=== PATIENT | male | born 1930 | race Caucasian/White ===

== ENCOUNTER 2018-03-02 19:22 | Inpatient (IN) | payer MEDICARE ==
[2018-03-02 20:05] LABS: #Eosinphils 0.1 thou/uL (0.0-0.7); #Lymphocytes 1.5 thou/uL (1.20-3.40); #Monocytes 0.9 thou/uL (0.11-0.59); #Neutrophils 6.6 thou/uL (1.40-6.50); %Basophils 0.5 % (0.0-1.0); %Lymphocytes 16.7 % (21.0-51.0); %Monocytes 9.3 % (0.0-10.0); %Neutrophils 72.5 % (42.0-75.0); Hemoglobin 10.5 g/dL (14.0-18.0); Mean Corpuscular Hemoglobin 28.6 pg (27.0-31.0); Mean Corpuscular Volume 86.7 fL (78.0-98.0); Mean Platelet Volume 6.8 fL (7.4-10.4); Platelet Count 253 thou/uL (130-400); RBC Distribution Width 13.9 % (11.5-14.5); Red Blood Cell (RBC) Count 3.68 mill/uL (4.70-6.10); White Blood Cell (WBC) Count 9.1 thou/uL (4.8-10.8)
[2018-03-02 20:27] LABS: CKMB 2.6 ng/mL (0-6.6); Troponin I 0.062 ng/mL (< 0.028)
[2018-03-02 20:29] LABS: ALT (SGPT) Less than 7 U/L (8-55); AST (SGOT) 20 U/L (5-34); Albumin 3.7 g/dL (3.4-4.8); Alkaline Phosphatase 71 U/L (40-150); Anion Gap 13 mmol/L (10-20); BUN (Urea Nitrogen) 41 mg/dL (8.4-25.7); Bilirubin, Total 1.3 mg/dL (0.2-1.2); CK (CPK) 78 U/L (30-200); Calc. Creatinine Clearance 0 mL/min (70-130); Calcium 8.8 mg/dL (7.8-10.44); Carbon Dioxide 24 mmol/L (23-31); Chloride 103 mmol/L (98-107); Estimated GFR-MDRD 27; Globulin 2.6 g/dL (2.4-3.5); Glucose 135 mg/dL (83-110); Protein, Total 6.3 g/dL (5.8-8.1); Sodium 136 mmol/L (136-145)
--- NOTE | 2018-03-02 20:44 | RAD ---
PORTABLE UPRIGHT FRONTAL CHEST RADIOGRAPH: DATE: 03-02-18 Comparison: 09-03-16 History: Chest pain. FINDINGS: Heart and mediastinal contours are stable. Midline sternotomy wires are present. There is atheroscler otic calcification in the aortic arch. There is no pneumothorax seen. There is blunting of the costophrenic angle on the left suggesting a small left pleural effusion, new . No lobar consolidation or alveolar edema. There is atherosclerotic calcification of the descending thoracic aorta. IMPRESSION: Findings suggesting a small left pleural effusion. Study otherwise unremarkable. POS: TIM
[2018-03-02] MEDS ORDERED: Furosemide 40 MG/4 ML VIAL ONE (21:28)
[2018-03-02] MEDS ORDERED: Metoprolol Tartrate 5 MG/5 ML VIAL ONE (21:28)
[2018-03-02] MEDS ORDERED: hydrALAZINE 20 MG/ML VIAL ONE (22:19)
[2018-03-02] MEDS ORDERED: Acetaminophen 325 MG TAB PO PRN (22:40)
[2018-03-02] MEDS ORDERED: Ondansetron HCl/PF 4 MG/2 ML Vial IVP PRN (22:40)
[2018-03-02] MEDS ORDERED: traZODone HCl 50 MG TAB PO PRN (22:42)
[2018-03-02] MEDS ORDERED: Dextrose 5% in Water 1,000 ML IV PRN (22:43)
[2018-03-02] MEDS ORDERED: Dextrose 50% Abboject 50 ML SYRINGE SLOW IVP PRN (22:43)
[2018-03-02] MEDS ORDERED: Enoxaparin Sodium 40 MG/0.4 ML SYRINGE SC SCH (22:45)
[2018-03-02 23:20] LABS: Troponin I 0.066 ng/mL (< 0.028)
--- NOTE | 2018-03-03 00:14 | HP ---
CODE STATUS: Patient is FULL CODE as of now, I discussed with , she is willing to discuss with p pino's son and daughter regarding DNR status most likely they will prefer the patient to be DNR. N o repeat seizure at this point. PRIMARY CARE PHYSICIAN: Dr. Morton. CHIEF COMPLAINT: Chest pain. HISTORY OF PRESENT ILLNESS: This is an 88-year-old male patient with past medical history of hypothy roidism, Alzheimer's, CKD, diabetes type 2, hyperlipidemia, hypertension, history of CABG came to the hospital after having chest pain. The pain started when the patient was at rest, the pain got much better after the patient had sublingual nitro. Of note, he has a history of CABG x2 vessel five year s ago. The pain is substernal associated with shortness of breath. REVIEW OF SYSTEMS: Patient has dementia, is difficult to obtain the history, during interview gives repeating the same sentences, information gathered from , this is reported in HPI. No other symp toms like fever or diarrhea, abdominal pain were reported. PAST MEDICAL HISTORY: Patient has hypothyroidism, Alzheimer's, CKD, diabetes type 2, hyperlipidemia, hypertension. PAST SURGICAL HISTORY: Bypass graft surgery in 2012. PSYCHIATRIC HISTORY: Dementia. SOCIAL HISTORY: Lives with at home. FAMILY HISTORY: Reviewed and noncontributory for current presentation. VITAL SIGNS: On presentation blood pressure 192/102 with heart rate 68, respiratory rate 18, tempera ture 98.9. DRUG ALLERGIES: No known drug allergies. REPORTED MEDICATIONS: Enalapril, metformin, trazodone, hydralazine, potassium chloride, levothyroxin e, carvedilol, simvastatin, aspirin, vitamin D3, Sinemet. PHYSICAL EXAMINATION: GENERAL APPEARANCE: The patient is alert, disoriented to underlying dementia, not in any acute distr ess. HEENT: Normocephalic, conjunctivae. Moist oral mucosa, anicteric. NECK: No JVD. RESPIRATORY: Bilateral air entry. No rales, no wheezing. Symmetrical expansion. CARDIOVASCULAR: Normal rate, regular rhythm. Patient is hypertensive. No murmurs, no gallop. Bila teral leg edema. ABDOMEN: Soft, normal bowel sounds. MUSCULOSKELETAL: Baseline range of motion and strength. No tenderness. SKIN: Warm and intact. No pallor, no rash, redness. NEUROLOGIC: Baseline sensory. No evidence of any new focal weakness. Baseline speech. Cranial ner ves seems to be intact. PSYCHIATRIC: Patient is in a good mood. No anxiety, oriented, optimal judgment. LABORATORY DATA: Reviewed. The patient has white count 9.1, hemoglobin 10.5, MCV 86, platelet count 253. Chemistry: Sodium 136, potassium 4.0, chloride 103, carbon dioxide 24, anion gap 13, BUN 41, creatinine 2.2 and the previous admission was 2.0, GFR 27, glucose 135. Total bilirubin 1.3, AST 20, ALT less than 7. CK was negative. Troponin 0.062, the second one 0.066. Beta natriuretic peptide 2105. X-ray findings suggestive of small left pleural effusion, otherwise unremarkable. EKG was rev iewed myself. The patient has normal sinus rhythm with a rate of 68 with NV 188, QRS 76, QT correcte d 474. This was discussed with the performing physician from ER. ASSESSMENT AND PLAN: The patient will be placed in the hospital with following medical problems: 1. Chest pain, rule out acute coronary syndrome. Patient has a history of coronary artery bypass gr aft, it looks like patient has undiagnosed congestive heart failure, patient follow with Dr. Sanchez or consult for further management as inpatient. We will reconcile home medications, continue diuresis. 2. Underlying dementia, patient will need supportive care. We will monitor for delirium as inpeña marcano. 3. Last echo on record is from 2015. At that time, the patient has normal EF. Aortic valve scleros is, mild aortic valve regurgitation, we will repeat the echo in the morning, we will consult Dr. Sanchez and follow recommendations. 4. Normocytic anemia. This seems to be chronic, hemoglobin is 10, we will monitor, no need for any acute intervention at this point. 5. Chronic kidney disease. Creatinine is mildly elevated compared to previous values, patient will need diuresis. We will monitor kidney function. If getting worse, might need Nephro assistance for this patient. We will reconcile home meds, hold CATRACHO inhibitors for now. Might be cardiorenal. 6. Fluid overload secondary to congestive heart failure, treatment as above. 7. Hypothyroidism. Continue hormone replacement. 8. Hyperlipidemia. Continue atorvastatin. 9. Uncontrolled hypertension. Reconcile home medications. 10. Deep venous thrombosis prophylaxis.
[2018-03-03 00:33] VITALS: BMI 30.5
[2018-03-03 02:23] LABS: Troponin I 0.065 ng/mL (< 0.028)
[2018-03-03] MEDS: cloNIDine 0.1 MG TAB PO PRN ×2 (04:02→17:11)
[2018-03-03 05:17] LABS: #Basophils 0.1 thou/uL (0.0-0.2); #Eosinphils 0.1 thou/uL (0.0-0.7); #Lymphocytes 1.7 thou/uL (1.20-3.40); #Monocytes 0.9 thou/uL (0.11-0.59); #Neutrophils 5.9 thou/uL (1.40-6.50); %Basophils 0.8 % (0.0-1.0); %Eosinophils 1.2 % (0.0-10.0); %Lymphocytes 19.1 % (21.0-51.0); %Monocytes 10.5 % (0.0-10.0); %Neutrophils 68.4 % (42.0-75.0); Hemoglobin 10.9 g/dL (14.0-18.0); Mean Corpuscular HGB CONC 31.8 g/dL (32.0-36.0); Mean Corpuscular Hemoglobin 27.4 pg (27.0-31.0); Mean Corpuscular Volume 86.2 fL (78.0-98.0); Mean Platelet Volume 6.8 fL (7.4-10.4); Platelet Count 240 thou/uL (130-400); RBC Distribution Width 14.2 % (11.5-14.5); Red Blood Cell (RBC) Count 3.98 mill/uL (4.70-6.10); White Blood Cell (WBC) Count 8.7 thou/uL (4.8-10.8)
[2018-03-03 05:37] LABS: Anion Gap 14 mmol/L (10-20); BUN (Urea Nitrogen) 40 mg/dL (8.4-25.7); Calc. Creatinine Clearance 28 mL/min (70-130); Calcium 8.8 mg/dL (7.8-10.44); Carbon Dioxide 26 mmol/L (23-31); Chloride 104 mmol/L (98-107); Estimated GFR-MDRD 30; Glucose 123 mg/dL (83-110); Potassium 3.6 mmol/L (3.5-5.1); Sodium 140 mmol/L (136-145)
[2018-03-03] MEDS: Levothyroxine Sodium 100 MCG TAB PO SCH (06:03)
[2018-03-03] MEDS ORDERED: Milk Of Magnesia 30 ML UDCUP PO PRN (07:33)
[2018-03-03] MEDS ORDERED: HYDROcodone/Acetaminophen 5/325 mg Tablet PO PRN (07:33)
[2018-03-03] MEDS ORDERED: Nitroglycerin 0.4 MG TAB (25 Tab Bottle) SL PRN (07:33)
[2018-03-03] MEDS ORDERED: Ondansetron ODT 4 MG TAB PO PRN (07:33)
[2018-03-03] MEDS ORDERED: Mag-Al 1200 mg/1200 mg/30 ML UDCUP PO PRN (07:33)
[2018-03-03] MEDS ORDERED: Chloraseptic Spray 180 ml Bottle PO PRN (07:33)
[2018-03-03] MEDS ORDERED: Senokot 8.6 MG TAB PO PRN (07:33)
[2018-03-03] MEDS ORDERED: Artificial Tears 18 DROP/0.9 ML EA EYE PRN (07:33)
[2018-03-03] MEDS ORDERED: Eucerin (Mineral Oil/Petrolatum,White) 30 gm Jar TOP PRN (07:33)
[2018-03-03] MEDS ORDERED: Diabetic Tussin 200 MG/10 ML UDCUP PO PRN (07:33)
[2018-03-03] MEDS ORDERED: Sodium Chloride 0.65% Nasal 44 ML BOT EA NARE PRN (07:33)
[2018-03-03] MEDS ORDERED: Loratadine 10 MG TAB PO PRN (07:33)
[2018-03-03] MEDS ORDERED: hydrALAZINE 20 MG/ML VIAL SLOW IVP PRN (07:33)
[2018-03-03] MEDS: Aspirin 81 mg Enteric Coated Tablet PO SCH (08:58)
[2018-03-03] MEDS: Potassium Chloride 10 MEQ TAB PO SCH (08:58)
[2018-03-03] MEDS ORDERED: Amlodipine 5 MG TAB PO SCH (09:00)
[2018-03-03] MEDS ORDERED: Levothyroxine Sodium 100 MCG TAB PO SCH (09:00)
[2018-03-03] MEDS ORDERED: hydrALAZINE 25 MG TAB PO SCH (09:00)
[2018-03-03] MEDS: Carvedilol 6.25 MG TAB PO SCH ×2 (09:04→21:53)
[2018-03-03] MEDS: Furosemide 40 MG/4 ML VIAL SLOW IVP SCH (09:04)
[2018-03-03] MEDS: hydrALAZINE 25 MG TAB PO SCH ×2 (09:04→21:56)
--- NOTE | 2018-03-03 10:55 | PDOC.PN ---
- Subjective Encounter Start Date: 03/03/18 Encounter Start Time: 08:00 -: old records requested/rev Patient seen and examined for chf. No new complaints. No overnight events pt's present bedside, i spoke with her and history obtained - Objective Resuscitation Status: Resuscitation Status FULL:Full Resuscitation MAR Reviewed: Yes Vital Signs & Weight: Vital Signs (12 hours) Temp Pulse Resp BP BP BP Pulse Ox 03/03/18 04:02 180/88 H 03/03/18 03:21 98.1 F 75 15 180/88 H 92 L 03/02/18 23:20 98.3 F 75 18 167/82 H 97 Weight Weight 177 lb 12.8 oz I&O: 03/02/18 03/03/18 03/04/18 06:59 06:59 06:59 Intake Total 240 Output Total 1300 Balance -1060 Result Diagrams: 03/03/18 04:28 03/03/18 04:28 Additional Labs: Accuchecks 03/03/18 05:49 POC Glucose 118 H Radiology Reviewed by me: Yes (chest xray) EKG Reviewed by me: Yes (nsr) Phys Exam - Physical Examination Constitutional: NAD HEENT: PERRLA, moist MMs, sclera anicteric Neck: no JVD, supple Respiratory: no wheezing, no rhonchi reduced air entry at left side Cardiovascular: RRR, no significant murmur, no rub Gastrointestinal: soft, non-tender, no distention, positive bowel sounds Musculoskeletal: pulses present, edema present Neurological: non-focal, normal sensation Lymphatic: no nodes Psychiatric: normal affect Skin: no rash, normal turgor Dx/Plan (1) Acute on chronic diastolic ACC/AHA stage C congestive heart failure Code(s): I50.33 - ACUTE ON CHRONIC DIASTOLIC (CONGESTIVE) HEART FAILURE Status : Acute (2) Acute worsening of stage 3 chronic kidney disease Code(s): N18.3 - CHRONIC KIDNEY DISEASE, STAGE 3 (MODERATE) Status: Acute (3) Chest pain Code(s): R07.9 - CHEST PAIN, UNSPECIFIED Status: Acute (4) Demand ischemia Code(s): I24.8 - OTHER FORMS OF ACUTE ISCHEMIC HEART DISEASE Status: Acute (5) CAD (coronary artery disease) Code(s): I25.10 - ATHSCL HEART DISEASE OF [place] CORONARY ARTERY W/O ANG PCTRS Status: Chronic (6) Dementia Code(s): F03.90 - UNSPECIFIED DEMENTIA WITHOUT BEHAVIORAL DISTURBANCE Status: Chronic (7) Diabetes type 2, controlled Code(s): E11.9 - TYPE 2 DIABETES MELLITUS WITHOUT COMPLICATIONS Status: Chronic (8) Dyslipidemia Code(s): E78.5 - HYPERLIPIDEMIA, UNSPECIFIED Status: Chronic (9) Hypertension Code(s): I10 - ESSENTIAL (PRIMARY) HYPERTENSION Status: Chronic Comment: (10) Hypothyroidism Code(s): E03.9 - HYPOTHYROIDISM, UNSPECIFIED Status: Chronic (11) Obesity (BMI 30.0-34.9) Code(s): E66.9 - OBESITY, UNSPECIFIED Status: Chronic (12) Parkinson disease Code(s): G20 - PARKINSON'S DISEASE Status: Chronic - Plan cont current plan of care, plan discussed w/ family, PT/OT * cardiology consulted * echo will be done today * continue lasix * start selected home medication * add nitro patch * monitor renal function * discussed plan with * medication reviewed as below * symptomatic treatment * based on his renal function he is not a good candidate for cardiac cath at this point. Review of Systems - Review of Systems Other: not reliable with pt due to his dementia - Medications/Allergies Allergies/Adverse Reactions: Allergies Allergy/AdvReac Type Severity Reaction Status Date / Time donepezil HCl [From Aricept] Allergy Mild Verified 03/15/16 13:25 Medications: Current Medications Acetaminophen (Tylenol) 650 mg PO Q4H PRN PRN Reason: Headache/Fever or Pain Hydrocodone Bitart/Acetaminophen (Purling 5/325) 1 tab PO Q4H PRN PRN Reason: Moderate Pain (4-6) Al Hydroxide/Mg Hydroxide (Maalox) 15 ml PO Q4H PRN PRN Reason: Heartburn or Indigestion Artificial Tears (Tears Naturale) 0 drop EA EYE PRN PRN PRN Reason: Dry Eyes Aspirin (Ecotrin) 81 mg PO DAILY [facility] Last Admin: 03/03/18 08:58 Dose: 81 mg Atorvastatin Calcium (Lipitor) 10 mg PO HS [facility] Carvedilol (Coreg) 6.25 mg PO BID [facility] Last Admin: 03/03/18 09:04 Dose: 6.25 mg Clonidine (Catapres) 0.1 mg PO Q4H PRN PRN Reason: BP>180/100 Last Admin: 03/03/18 04:02 Dose: 0.1 mg Dextrose/Water (Dextrose 50%) 25 gm SLOW IVP PRN PRN PRN Reason: Hypoglycemia Furosemide (Lasix) 40 mg SLOW IVP DAILY [facility] Last Admin: 03/03/18 09:04 Dose: 40 mg Glucagon (Glucagon) 1 mg IM PRN PRN PRN Reason: Hypoglycemia Guaifenesin (Robitussin Sf) 200 mg PO Q4H PRN PRN Reason: Cough Hydralazine HCl (Apresoline) 75 mg PO BID [facility] Last Admin: 03/03/18 09:04 Dose: 75 mg Hydralazine HCl (Apresoline) 10 mg SLOW IVP Q4H PRN PRN Reason: Systolic BP > 180 Dextrose/Water (D5w) 1,000 mls @ 0 mls/hr IV .Q0M PRN; As Directed PRN Reason: Hypoglycemia Insulin Human Regular (Humulin R) 0 units SC .MILD SLIDING SCALE PRN PRN Reason: Mild Correctional Scale Levothyroxine Sodium (Synthroid) 100 mcg PO 0600 [facility] Last Admin: 03/03/18 06:03 Dose: 100 mcg Loratadine (Claritin) 10 mg PO DAILYPRN PRN PRN Reason: Sinus Symptoms Magnesium Hydroxide (Milk Of Magnesium) 30 ml PO DAILYPRN PRN PRN Reason: Constipation Mineral Oil/White Petrolatum (Eucerin Cream) 0 gm TOP BIDPRN PRN PRN Reason: Dry Skin Nitroglycerin (Nitrostat) 0.4 mg SL Q5MIN PRN PRN Reason: Chest Pain Nitroglycerin (Nitro-Bid 2% Ointment) 0.5 inch TOP Q8HR [facility] Ondansetron HCl (Zofran) 4 mg IVP Q6H PRN PRN Reason: Nausea/Vomiting Ondansetron HCl (Zofran Odt) 4 mg PO Q6H PRN PRN Reason: Nausea/Vomiting (Carbidopa/Levodopa/Entacapone [ Carbidopa-Levodopa 125 Mg-Enta] 0 each PO Q6HR [facility] Phenol (Chloraseptic [place] 180 Ml Bot) 0 ml PO PRN PRN PRN Reason: Sore Throat Potassium Chloride (Klor-Con 10) 10 meq PO QAM[facility] Last Admin: 03/03/18 08:58 Dose: 10 meq Senna (Senokot) 2 tab PO HSPRN PRN PRN Reason: Constipation Sodium Chloride (Crook Nasal [place] 0.65%) 0 ml EA NARE QIDPRN PRN PRN Reason: Nasal Congestion Trazodone HCl (Desyrel) 25 mg PO HSPRN PRN PRN Reason: Insomnia
--- NOTE | 2018-03-03 12:44 | CON ---
DATE OF CONSULTATION: 03/03/2018 DATE OF ADMISSION: 03/02/2018 INDICATION FOR CONSULTATION: An 88-year-old gentleman with a history of known coronary artery diseas e, bypass surgery who has developed new onset congestive heart failure. HISTORY OF PRESENT ILLNESS: This is a very pleasant gentleman I have been following him for many yea rs, he is now 88 years old. He has been doing relatively well, but does have dementia. Otherwise, mt holder did undergo bypass surgery, I believe in 2012. He had a ARSHAD to the left anterior descending arter y, saphenous vein graft to the right coronary artery. He has been followed on a routine basis and evans s been doing very well. The last couple of months his said he has noticed increased lower extre mity edema and has also had occasional diarrhea. He has been also problems with hypertension which h as been poorly controlled despite multiple medications. He presented to the hospital yesterday after he complained of chest pain. He originally was having some diarrhea and complained of abdominal conner n, then told his he was not feeling well all day long and then complained of some chest discomfo rt and was brought to the emergency room. He also been complaining of some shortness of breath. EKG was unremarkable. Cardiac enzymes were indeterminate. His a troponin after the second set was 0.06 6. An echocardiogram is still pending. His last echocardiogram, I believe was in 2013, which showed mild mitral valve regurgitation, mild to moderate aortic and tricuspid valve regurgitation with ejec tion fraction was normal at 55-60%. He has had no previous history of myocardial infarction or conge stive heart failure symptoms in the past. Today, he is relatively alert. He was able to recognize m e. His says he has good days and bad days, but was unable to answer some questions for me. He did know where he was and did know who he was and is denying any chest pain or shortness of breath at this time. PAST MEDICAL HISTORY: Significant for the coronary artery disease, bypass surgery. He has hyperlipi demia, hypertension, diabetes type 2, chronic kidney disease, dementia. He has had bypass surgery as noted above. REVIEW OF SYSTEMS: Twelve point review of systems is unremarkable except for the history of intermit tent diarrhea, shortness of breath, lower extremity edema, occasional chest discomfort as noted, but this is a new finding. Previously he has not had any complaints of chest discomfort. Otherwise, 12 point review of systems unremarkable. MEDICATIONS: His medications prior to admission include aspirin, enalapril, levothyroxine, hydralazi ne, metformin, Sinemet, Norvasc, simvastatin, trazodone, potassium, vitamin D3 and Coreg. These medi cations have slightly been adjusted with his recent blood pressure elevations. Here in the hospital, he has also been continued on these medications except he is at increased dose of the Coreg. He has been started on Lasix. He is still taking atorvastatin 10 mg, he is on Coreg 6.25 mg b.i.d. He has also been placed on a Lovenox. I believe he was given a dose and then this was discontinued. FAMILY HISTORY: Noncontributory. SOCIAL HISTORY: There is no history of alcohol or tobacco abuse at this time. PHYSICAL EXAMINATION: GENERAL: Reveals an elderly gentleman who is in no acute distress at this time. VITAL SIGNS: Blood pressure is elevated at 180/88. He is afebrile, respiratory rate is 16, heart ra te is 75 and shows sinus rhythm. O2 saturation is 95%. HEENT: Shows the head to be normocephalic and atraumatic. Carotid pulses are present. I did not he ar any significant bruits at this time. CHEST: His chest is actually clear to auscultation. I did not hear any rales, rhonchi or wheezing. CARDIOVASCULAR: Exam reveals a regular rate and rhythm with normal S1, S2. There is no significant S3, S4, no significant murmurs, heaves, thrills, bruits or rubs noted. He does have very soft diasto lic murmur over the aortic area compatible with his known history of aortic valve regurgitation. ABDOMEN: Soft. He does have some mild tympany, but no palpable masses, no tenderness. EXTREMITIES: Showed 1-2+ lower extremity edema. Pedal pulses are present. NEUROLOGIC: The patient obviously has dementia, but there were no gross focal motor deficits that we re appreciated. SKIN: Warm and dry at this time. LABORATORY: Laboratory data is pertinent for a BUN of 40 with a creatinine of 2.09, blood sugar was 123, potassium 3.6, hemoglobin is 10.9, WBC of 8.7. EKG shows a sinus rhythm with no acute changes. Chest x-ray shows a small left pleural effusion. IMPRESSION: 1. New onset congestive heart failure which may be diastolic in nature. The echocardiogram is still pending. We will review that for evaluation of left ventricular systolic function as well as diasto lic function and valvular status. 2. Hypertension. This has been a relatively new finding in this gentleman. Previously he did not h ave any significant hypertension. The last time he was seen in the office was October of this year and blood pressure was 134/61 with a heart rate of 54. 3. History of coronary artery disease. He is status post bypass surgery. This appears to be stable at this time. The cardiac enzymes are slightly elevated; however, most likely this is due to demand ischemia associated with the hypertension and congestive heart failure. 4. History of chronic kidney disease, it does present a problem for this gentleman trying to diurese him with a creatinine of 2.09. He may need to have a Nephrology consultation. We need to evaluate his medications. He is not on CATRACHO inhibitor except for that he has been on CATRACHO inhibitor, he had be en on enalapril in the past. 5. History of diabetes. This will be dealt with by the primary care service. 6. Alzheimer disease. This certainly has not been an issue for this gentlemen over the last several years. He has continued to decline. At times he does not recognize members of his family, but he d oes recognize his and today he seems to be a good day for him as he knows relatively who I am an d where he is. 7. Hypercholesterolemia. He will continue to take his medications. 8. Also, please note that he is still taking atorvastatin 10. He is on Coreg 6.25 mg b.i.d. He has also been placed on Lovenox. I believe he was given a dose and then this was discontinued. He is g etting Lasix 40 mg IV. He also has been placed on hydralazine for the blood pressure. We will diamante nue to monitor these medications. We may need to add clonidine in order to lower the blood pressure. This may be his hypertension which has been difficult to control since January according to the family , may be the etiology behind the acute congestive heart failure type symptoms and the edema. 9. Lower extremity edema. We will try to elevate the legs, add diuretics as tolerated and see if he improves and hopefully the BNP will also decrease, his BNP was over 1999. 10. Anemia. This is relatively stable, but hemoglobin was 10.9, which may be dilutional to a certai n degree since he is volume overloaded. 11. Small left pleural effusion. Hopefully, this will resolve with diuresis. Further recommendations will depend on the results of the echocardiogram which will be reviewed today .
[2018-03-03] MEDS: Nitroglycerin 2% Ointment 1 INCH/1 GM Packet TOP SCH ×2 (15:38→21:59)
[2018-03-03] MEDS: Carbidopa/Levodopa 25-100 mg Tablet PO SCH ×2 (17:11→21:53)
[2018-03-03] MEDS ORDERED: Non-Formulary Item 1 EACH (Simvastatin [Simvastatin] 10 MG) PO SCH (21:00)
[2018-03-03] MEDS: Atorvastatin Calcium 10 MG TAB PO SCH (21:53)
[2018-03-04] MEDS: cloNIDine 0.1 MG TAB PO PRN (04:02)
[2018-03-04] MEDS: Levothyroxine Sodium 100 MCG TAB PO SCH (05:12)
[2018-03-04] MEDS: Nitroglycerin 2% Ointment 1 INCH/1 GM Packet TOP SCH ×3 (05:13→22:34)
[2018-03-04] MEDS: Aspirin 81 mg Enteric Coated Tablet PO SCH (08:06)
[2018-03-04] MEDS: Carvedilol 6.25 MG TAB PO SCH ×2 (08:06→19:46)
[2018-03-04] MEDS: Carbidopa/Levodopa 25-100 mg Tablet PO SCH ×6 (08:07→19:47)
[2018-03-04] MEDS: Amlodipine 5 MG TAB PO SCH (08:07)
[2018-03-04] MEDS: hydrALAZINE 25 MG TAB PO SCH ×3 (08:07→19:47)
[2018-03-04] MEDS: Potassium Chloride 10 MEQ TAB PO SCH (08:08)
[2018-03-04] MEDS: Furosemide 40 MG/4 ML VIAL SLOW IVP SCH (08:08)
[2018-03-04] MEDS: NIFEdipine XL 30 MG TAB PO SCH (08:13)
--- NOTE | 2018-03-04 11:06 | PDOC.PN ---
- Subjective Encounter Start Date: 03/04/18 Encounter Start Time: 08:00 -: old records requested/rev Patient seen and examined. No new complaints. No overnight events edema is reducing - Objective Resuscitation Status: Resuscitation Status FULL:Full Resuscitation MAR Reviewed: Yes Vital Signs & Weight: Vital Signs (12 hours) Temp Pulse Resp BP BP Pulse Ox 03/04/18 08:00 98.9 F 75 16 177/95 H 94 L 03/04/18 05:15 63 169/86 H 03/04/18 04:02 184/89 H 03/04/18 03:57 98.5 F 68 18 184/89 H 96 03/04/18 00:00 98.6 F 68 18 172/86 H 96 Weight Weight 166 lb 12.8 oz I&O: 03/03/18 03/04/18 03/05/18 06:59 06:59 06:59 Intake Total 240 580 100 Output Total 1300 Balance -1060 580 100 Result Diagrams: 03/03/18 04:28 03/03/18 04:28 Additional Labs: Accuchecks 03/04/18 03/03/18 03/03/18 06:21 21:00 16:55 POC Glucose 141 H 153 H 150 H 03/03/18 11:13 POC Glucose 157 H Radiology Reviewed by me: Yes (echo) EKG Reviewed by me: Yes (nsr) Phys Exam - Physical Examination Constitutional: NAD HEENT: PERRLA, moist MMs, sclera anicteric Neck: no JVD, supple Respiratory: no wheezing, no rales, no rhonchi Cardiovascular: RRR, no rub SM+ parasternal Gastrointestinal: soft, non-tender, no distention, positive bowel sounds Musculoskeletal: pulses present, edema present Neurological: non-focal, normal sensation Lymphatic: no nodes Psychiatric: normal affect Skin: no rash, normal turgor Dx/Plan (1) Acute on chronic diastolic ACC/AHA stage C congestive heart failure Code(s): I50.33 - ACUTE ON CHRONIC DIASTOLIC (CONGESTIVE) HEART FAILURE Status : Acute (2) Acute worsening of stage 3 chronic kidney disease Code(s): N18.3 - CHRONIC KIDNEY DISEASE, STAGE 3 (MODERATE) Status: Acute (3) Chest pain Code(s): R07.9 - CHEST PAIN, UNSPECIFIED Status: Acute (4) Demand ischemia Code(s): I24.8 - OTHER FORMS OF ACUTE ISCHEMIC HEART DISEASE Status: Acute (5) CAD (coronary artery disease) Code(s): I25.10 - ATHSCL HEART DISEASE OF [place] CORONARY ARTERY W/O ANG PCTRS Status: Chronic (6) Dementia Code(s): F03.90 - UNSPECIFIED DEMENTIA WITHOUT BEHAVIORAL DISTURBANCE Status: Chronic (7) Diabetes type 2, controlled Code(s): E11.9 - TYPE 2 DIABETES MELLITUS WITHOUT COMPLICATIONS Status: Chronic (8) Dyslipidemia Code(s): E78.5 - HYPERLIPIDEMIA, UNSPECIFIED Status: Chronic (9) Hypertension Code(s): I10 - ESSENTIAL (PRIMARY) HYPERTENSION Status: Chronic Comment: (10) Hypothyroidism Code(s): E03.9 - HYPOTHYROIDISM, UNSPECIFIED Status: Chronic (11) Obesity (BMI 30.0-34.9) Code(s): E66.9 - OBESITY, UNSPECIFIED Status: Chronic (12) Parkinson disease Code(s): G20 - PARKINSON'S DISEASE Status: Chronic (13) Moderate mitral regurgitation Code(s): I34.0 - NONRHEUMATIC MITRAL (VALVE) INSUFFICIENCY Status: Chronic (14) Restrictive cardiomyopathy Code(s): I42.5 - OTHER RESTRICTIVE CARDIOMYOPATHY Status: Chronic (15) Severe tricuspid regurgitation Code(s): I07.1 - RHEUMATIC TRICUSPID INSUFFICIENCY Status: Chronic - Plan cont current plan of care, plan discussed w/ family, PT/OT, social media content specialist * continue lasix * creatinine is improving * will need SNU placement * start PT/OT * medication reviewed as below * symptomatic treatment * discussed with daughter. Review of Systems - Review of Systems Other: not reliable due to cognitive status - Medications/Allergies Allergies/Adverse Reactions: Allergies Allergy/AdvReac Type Severity Reaction Status Date / Time donepezil HCl [From Aricept] Allergy Mild Verified 03/15/16 13:25 Medications: Current Medications Acetaminophen (Tylenol) 650 mg PO Q4H PRN PRN Reason: Headache/Fever or Pain Hydrocodone Bitart/Acetaminophen ([place] 5/325) 1 tab PO Q4H PRN PRN Reason: Moderate Pain (4-6) Al Hydroxide/Mg Hydroxide (Maalox) 15 ml PO Q4H PRN PRN Reason: Heartburn or Indigestion Amlodipine Besylate (Norvasc) 5 mg PO DAILY [facility] Last Admin: 03/04/18 08:07 Dose: 5 mg Artificial Tears (Tears Naturale) 0 drop EA EYE PRN PRN PRN Reason: Dry Eyes Aspirin (Ecotrin) 81 mg PO DAILY [facility] Last Admin: 03/04/18 08:06 Dose: 81 mg Atorvastatin Calcium (Lipitor) 10 mg PO HS [facility] Last Admin: 03/03/18 21:53 Dose: 10 mg Carbidopa/Levodopa (Sinemet 25-100) 1 tab PO QID [facility] Last Admin: 03/04/18 08:07 Dose: 1 tab Carbidopa/Levodopa (Sinemet 25-100) 1 tab PO QID [facility] Last Admin: 03/04/18 08:07 Dose: Not Given Carvedilol (Coreg) 6.25 mg PO BID [facility] Last Admin: 03/04/18 08:06 Dose: 6.25 mg Clonidine (Catapres) 0.1 mg PO Q4H PRN PRN Reason: BP>180/100 Last Admin: 03/04/18 04:02 Dose: 0.1 mg Dextrose/Water (Dextrose 50%) 25 gm SLOW IVP PRN PRN PRN Reason: Hypoglycemia Furosemide (Lasix) 40 mg SLOW IVP DAILY [facility] Last Admin: 03/04/18 08:08 Dose: 40 mg Glucagon (Glucagon) 1 mg IM PRN PRN PRN Reason: Hypoglycemia Guaifenesin (Robitussin Sf) 200 mg PO Q4H PRN PRN Reason: Cough Hydralazine HCl (Apresoline) 10 mg SLOW IVP Q4H PRN PRN Reason: Systolic BP > 180 Last Admin: 03/03/18 18:18 Dose: 10 mg Hydralazine HCl (Apresoline) 75 mg PO TID [facility] Last Admin: 03/04/18 08:07 Dose: 75 mg Dextrose/Water (D5w) 1,000 mls @ 0 mls/hr IV .Q0M PRN; As Directed PRN Reason: Hypoglycemia Insulin Human Regular (Humulin R) 0 units SC .MILD SLIDING SCALE PRN PRN Reason: Mild Correctional Scale Levothyroxine Sodium (Synthroid) 100 mcg PO 0600 [facility] Last Admin: 03/04/18 05:12 Dose: 100 mcg Loratadine (Claritin) 10 mg PO DAILYPRN PRN PRN Reason: Sinus Symptoms Magnesium Hydroxide (Milk Of Magnesium) 30 ml PO DAILYPRN PRN PRN Reason: Constipation Mineral Oil/White Petrolatum (Eucerin Cream) 0 gm TOP BIDPRN PRN PRN Reason: Dry Skin Nifedipine (Procardia Xl) 30 mg PO DAILY [facility] Last Admin: 03/04/18 08:13 Dose: 30 mg Nitroglycerin (Nitrostat) 0.4 mg SL Q5MIN PRN PRN Reason: Chest Pain Nitroglycerin (Nitro-Bid 2% Ointment) 0.5 inch TOP Q8HR [facility] Last Admin: 03/04/18 05:13 Dose: 0.5 inch Ondansetron HCl (Zofran) 4 mg IVP Q6H PRN PRN Reason: Nausea/Vomiting Ondansetron HCl (Zofran Odt) 4 mg PO Q6H PRN PRN Reason: Nausea/Vomiting Phenol (Chloraseptic [place] 180 Ml Bot) 0 ml PO PRN PRN PRN Reason: Sore Throat Potassium Chloride (Klor-Con 10) 10 meq PO QAM-WM [facility] Last Admin: 03/04/18 08:08 Dose: 10 meq Senna (Senokot) 2 tab PO HSPRN PRN PRN Reason: Constipation Sodium Chloride ([place] Nasal [place] 0.65%) 0 ml EA NARE QIDPRN PRN PRN Reason: Nasal Congestion Sodium Chloride (Flush - Normal Saline) 10 ml IVF Q12HR [facility] Last Admin: 03/04/18 08:08 Dose: 10 ml Sodium Chloride (Flush - Normal Saline) 10 ml IVF PRN PRN PRN Reason: Saline Flush Trazodone HCl (Desyrel) 25 mg PO HSPRN PRN PRN Reason: Insomnia
--- NOTE | 2018-03-04 12:40 | PDOC.CTH ---
<Betty Brady - Last Filed: 03/04/18 12:34> Cardiology Progress Note - Subjective The pt seen and examined. No overnight events. No cardiac complaints. Per daughter, the pt had CP at CABG surgical site until last night. Today, the pt denied CP or discomfort in his chest. - Objective Vital Signs Temp Pulse Resp BP BP Pulse Ox 03/04/18 12:00 98.4 F 62 18 176/76 H 94 L 03/04/18 08:00 98.9 F 75 16 177/95 H 94 L 03/04/18 05:15 63 169/86 H 03/04/18 04:02 184/89 H 03/04/18 03:57 98.5 F 68 18 184/89 H 96 Weight 166 lb 12.8 oz 03/03/18 03/04/18 03/05/18 06:59 06:59 06:59 Intake Total 240 580 100 Output Total 1300 Balance -1060 580 100 - Physical Examination General/Neuro: other: (confused) Lungs: CTA Heart: RRR Abdomen: soft Extremities: other: (2+ pitting edema to around ankles.) - Telemetry Telemetry Rhythm: SR 60s - Labs Result Diagrams: 03/03/18 04:28 03/03/18 04:28 Troponin/CKMB CK-MB (CK-2) 2.6 ng/mL (0-6.6) 03/02/18 19:56 Troponin I 0.065 ng/mL (< 0.028) H 03/03/18 01:50 - Assessment/Plan 1. Acute on chronic diastolic HF - Stable with Lasix, bblocker. Not on CATRACHO due to hx of CKD. cont. to monitor 2. 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 to monitor on tele 3. HTN - Start Clonidine 0.1mg PO BID. Cont. monitor 4. CKD stage 3 - improving 5. Hyperlipidemia - on Statin 6. DM type 2 - managed by PCP 7. Alzheimer disease - stable; family at bedside 8. Lt small pleural effusion - On diuretic. 9. hypothyroidism - MAR reviewed * Echo on 03/03/18 showed EF 45-50%, dilated IVC, posterior hypokinesis, mild dilated bilat. atriums, mild-mod MR and AR, severe TR Review of Systems - Review of Systems Constitutional: reports: no symptoms reported EENTM: reports: no symptoms reported Respiratory: reports: no symptoms reported Cardiac (ROS): reports: no symptoms reported ABD/GI: reports: no symptoms reported : reports: no symptoms reported Musculoskeletal: reports: no symptoms reported <Milton Sanchez - Last Filed: 03/04/18 17:46> Cardiology Progress Note - Objective Vital Signs Temp Pulse Pulse Pulse Resp BP BP 03/04/18 16:00 97.7 F 59 L 18 03/04/18 14:36 61 64 127/57 L 144/71 H 03/04/18 12:00 98.4 F 62 18 03/04/18 08:00 98.9 F 75 16 BP Pulse Ox 03/04/18 16:00 142/69 H 92 L 03/04/18 14:36 03/04/18 12:00 176/76 H 94 L 03/04/18 08:00 177/95 H 94 L Weight 166 lb 12.8 oz 03/03/18 03/04/18 03/05/18 06:59 06:59 06:59 Intake Total 240 580 250 Output Total 1300 Balance -1060 580 250 - Labs Result Diagrams: 03/03/18 04:28 03/03/18 04:28 Troponin/CKMB CK-MB (CK-2) 2.6 ng/mL (0-6.6) 03/02/18 19:56 Troponin I 0.065 ng/mL (< 0.028) H 03/03/18 01:50 - Assessment/Plan Pt. seen and eval. by me. I agree with the A/P by the CELL ATTENDANT. The BP is improved. No chest pain. Continue medical management.
[2018-03-04] MEDS ORDERED: cloNIDine 0.1 MG TAB PO SCH ×2 (12:45→13:00)
[2018-03-04] MEDS: cloNIDine 0.1 MG TAB PO SCH (19:45)
[2018-03-04] MEDS: Atorvastatin Calcium 10 MG TAB PO SCH (19:46)
[2018-03-05] MEDS: Nitroglycerin 2% Ointment 1 INCH/1 GM Packet TOP SCH (05:40)
[2018-03-05] MEDS: Levothyroxine Sodium 100 MCG TAB PO SCH (05:40)
[2018-03-05] MEDS: hydrALAZINE 25 MG TAB PO SCH ×3 (08:29→21:02)
[2018-03-05] MEDS: Carbidopa/Levodopa 25-100 mg Tablet PO SCH ×4 (08:29→21:03)
[2018-03-05] MEDS: Potassium Chloride 10 MEQ TAB PO SCH (08:29)
[2018-03-05] MEDS: Aspirin 81 mg Enteric Coated Tablet PO SCH (08:30)
[2018-03-05] MEDS: cloNIDine 0.1 MG TAB PO SCH ×2 (08:30→21:02)
[2018-03-05] MEDS: Carvedilol 6.25 MG TAB PO SCH (08:30)
[2018-03-05] MEDS: Furosemide 40 MG/4 ML VIAL SLOW IVP SCH (08:31)
[2018-03-05] MEDS: NIFEdipine XL 30 MG TAB PO SCH (08:31)
[2018-03-05] MEDS: Amlodipine 5 MG TAB PO SCH (08:31)
--- NOTE | 2018-03-05 11:57 | PDOC.PN ---
- Subjective Encounter Start Date: 03/05/18 Encounter Start Time: 08:50 Patient seen and examined. No new complaints. No overnight events - Objective Resuscitation Status: Resuscitation Status FULL:Full Resuscitation MAR Reviewed: Yes Vital Signs & Weight: Vital Signs (12 hours) Temp Pulse Resp BP Pulse Ox 03/05/18 08:29 61 03/05/18 08:00 97.7 F 61 16 131/62 93 L 03/05/18 04:00 98.0 F 61 18 148/70 H 94 L Weight Weight 166 lb 1.6 oz I&O: 03/04/18 03/05/18 03/06/18 06:59 06:59 06:59 Intake Total 580 890 150 Output Total 625 Balance 580 265 150 Result Diagrams: 03/03/18 04:28 03/03/18 04:28 Additional Labs: Accuchecks 03/05/18 03/04/18 03/04/18 05:55 20:52 16:55 POC Glucose 121 H 297 H 145 H EKG Reviewed by me: Yes (nsr) Phys Exam - Physical Examination Constitutional: NAD HEENT: PERRLA, moist MMs, sclera anicteric Neck: no JVD, supple Respiratory: no wheezing, no rales, no rhonchi Cardiovascular: RRR, no rub SM+ Gastrointestinal: soft, non-tender, no distention, positive bowel sounds Musculoskeletal: no edema, pulses present Neurological: non-focal, normal sensation Lymphatic: no nodes Psychiatric: normal affect, A&O x 3 Skin: no rash, normal turgor Dx/Plan (1) Acute on chronic diastolic ACC/AHA stage C congestive heart failure Code(s): I50.33 - ACUTE ON CHRONIC DIASTOLIC (CONGESTIVE) HEART FAILURE Status : Acute (2) Acute worsening of stage 3 chronic kidney disease Code(s): N18.3 - CHRONIC KIDNEY DISEASE, STAGE 3 (MODERATE) Status: Acute (3) Chest pain Code(s): R07.9 - CHEST PAIN, UNSPECIFIED Status: Acute (4) Demand ischemia Code(s): I24.8 - OTHER FORMS OF ACUTE ISCHEMIC HEART DISEASE Status: Acute (5) CAD (coronary artery disease) Code(s): I25.10 - ATHSCL HEART DISEASE OF [place] CORONARY ARTERY W/O ANG PCTRS Status: Chronic (6) Dementia Code(s): F03.90 - UNSPECIFIED DEMENTIA WITHOUT BEHAVIORAL DISTURBANCE Status: Chronic (7) Diabetes type 2, controlled Code(s): E11.9 - TYPE 2 DIABETES MELLITUS WITHOUT COMPLICATIONS Status: Chronic (8) Dyslipidemia Code(s): E78.5 - HYPERLIPIDEMIA, UNSPECIFIED Status: Chronic (9) Hypertension Code(s): I10 - ESSENTIAL (PRIMARY) HYPERTENSION Status: Chronic Comment: (10) Hypothyroidism Code(s): E03.9 - HYPOTHYROIDISM, UNSPECIFIED Status: Chronic (11) Obesity (BMI 30.0-34.9) Code(s): E66.9 - OBESITY, UNSPECIFIED Status: Chronic (12) Parkinson disease Code(s): G20 - PARKINSON'S DISEASE Status: Chronic (13) Moderate mitral regurgitation Code(s): I34.0 - NONRHEUMATIC MITRAL (VALVE) INSUFFICIENCY Status: Chronic (14) Restrictive cardiomyopathy Code(s): I42.5 - OTHER RESTRICTIVE CARDIOMYOPATHY Status: Chronic (15) Severe tricuspid regurgitation Code(s): I07.1 - RHEUMATIC TRICUSPID INSUFFICIENCY Status: Chronic - Plan cont current plan of care, plan discussed w/ family, PT/OT, social media analyst * continue lasix * will need swing bed * medication reviewed as below * symptomatic treatment * telephonic nurse case manager to work on that * expecting discharge tomorrow * discussed with . Review of Systems - Review of Systems Other: not reliable with pt due to his cognitive status - Medications/Allergies Allergies/Adverse Reactions: Allergies Allergy/AdvReac Type Severity Reaction Status Date / Time donepezil HCl [From Aricept] Allergy Mild Verified 03/15/16 13:25 Medications: Current Medications Acetaminophen (Tylenol) 650 mg PO Q4H PRN PRN Reason: Headache/Fever or Pain Hydrocodone Bitart/Acetaminophen ([place] 5/325) 1 tab PO Q4H PRN PRN Reason: Moderate Pain (4-6) Al Hydroxide/Mg Hydroxide (Maalox) 15 ml PO Q4H PRN PRN Reason: Heartburn or Indigestion Amlodipine Besylate (Norvasc) 5 mg PO DAILY [facility] Last Admin: 03/05/18 08:31 Dose: Not Given Artificial Tears (Tears Naturale) 0 drop EA EYE PRN PRN PRN Reason: Dry Eyes Aspirin (Ecotrin) 81 mg PO DAILY [facility] Last Admin: 03/05/18 08:30 Dose: 81 mg Atorvastatin Calcium (Lipitor) 10 mg PO HS [facility] Last Admin: 03/04/18 19:46 Dose: 10 mg Carbidopa/Levodopa (Sinemet 25-100) 1 tab PO QID [facility] Last Admin: 03/05/18 08:29 Dose: 1 tab Carvedilol (Coreg) 6.25 mg PO BID [facility] Last Admin: 03/05/18 08:30 Dose: 6.25 mg Clonidine (Catapres) 0.1 mg PO Q4H PRN PRN Reason: BP>180/100 Last Admin: 03/04/18 04:02 Dose: 0.1 mg Clonidine (Catapres) 0.1 mg PO BID [facility] Last Admin: 03/05/18 08:30 Dose: 0.1 mg Dextrose/Water (Dextrose 50%) 25 gm SLOW IVP PRN PRN PRN Reason: Hypoglycemia Furosemide (Lasix) 40 mg SLOW IVP DAILY [facility] Last Admin: 03/05/18 08:31 Dose: 40 mg Glucagon (Glucagon) 1 mg IM PRN PRN PRN Reason: Hypoglycemia Guaifenesin (Robitussin Sf) 200 mg PO Q4H PRN PRN Reason: Cough Hydralazine HCl (Apresoline) 10 mg SLOW IVP Q4H PRN PRN Reason: Systolic BP > 180 Last Admin: 03/03/18 18:18 Dose: 10 mg Hydralazine HCl (Apresoline) 75 mg PO TID [facility] Last Admin: 03/05/18 08:29 Dose: 75 mg Dextrose/Water (D5w) 1,000 mls @ 0 mls/hr IV .Q0M PRN; As Directed PRN Reason: Hypoglycemia Insulin Human Regular (Humulin R) 0 units SC .MILD SLIDING SCALE PRN PRN Reason: Mild Correctional Scale Levothyroxine Sodium (Synthroid) 100 mcg PO 0600 [facility] Last Admin: 03/05/18 05:40 Dose: 100 mcg Loratadine (Claritin) 10 mg PO DAILYPRN PRN PRN Reason: Sinus Symptoms Magnesium Hydroxide (Milk Of Magnesium) 30 ml PO DAILYPRN PRN PRN Reason: Constipation Mineral Oil/White Petrolatum (Eucerin Cream) 0 gm TOP BIDPRN PRN PRN Reason: Dry Skin Nitroglycerin (Nitrostat) 0.4 mg SL Q5MIN PRN PRN Reason: Chest Pain Ondansetron HCl (Zofran) 4 mg IVP Q6H PRN PRN Reason: Nausea/Vomiting Ondansetron HCl (Zofran Odt) 4 mg PO Q6H PRN PRN Reason: Nausea/Vomiting Phenol (Chloraseptic [place] 180 Ml Bot) 0 ml PO PRN PRN PRN Reason: Sore Throat Potassium Chloride (Klor-Con 10) 10 meq PO QAM-WM [facility] Last Admin: 03/05/18 08:29 Dose: 10 meq Senna (Senokot) 2 tab PO HSPRN PRN PRN Reason: Constipation Sodium Chloride ([place] Nasal [place] 0.65%) 0 ml EA NARE QIDPRN PRN PRN Reason: Nasal Congestion Sodium Chloride (Flush - Normal Saline) 10 ml IVF Q12HR [facility] Last Admin: 03/05/18 08:31 Dose: 10 ml Sodium Chloride (Flush - Normal Saline) 10 ml IVF PRN PRN PRN Reason: Saline Flush Trazodone HCl (Desyrel) 25 mg PO HSPRN PRN PRN Reason: Insomnia
--- NOTE | 2018-03-05 13:09 | PDOC.CTH ---
<Betty Brady - Last Filed: 03/05/18 13:07> Cardiology Progress Note - Subjective The pt seen and examined. No overnight events. No cardiac complaints. He had taken bath, walked with PT, and sitting up to chair more than 2 hrs without any cardiac complaints. - Objective Vital Signs Temp Pulse Pulse Pulse Resp BP BP 03/05/18 12:00 97.5 F L 48 L 16 03/05/18 08:34 58 L 68 130/58 L 140/70 03/05/18 08:29 61 03/05/18 08:00 97.7 F 61 16 03/05/18 04:00 98.0 F 61 18 BP Pulse Ox Pulse Ox Pulse Ox 03/05/18 12:00 141/66 H 94 L 03/05/18 08:34 94 L 95 03/05/18 08:29 03/05/18 08:00 131/62 93 L 03/05/18 04:00 148/70 H 94 L Weight 166 lb 1.6 oz 03/04/18 03/05/18 03/06/18 06:59 06:59 06:59 Intake Total 580 890 150 Output Total 625 Balance 580 265 150 - Physical Examination Lungs: CTA Heart: RRR Abdomen: soft Extremities: other: (2-3+ pitting BLE) - Telemetry Telemetry Rhythm: SB 40-50s - Labs Result Diagrams: 03/03/18 04:28 03/03/18 04:28 Troponin/CKMB CK-MB (CK-2) 2.6 ng/mL (0-6.6) 03/02/18 19:56 Troponin I 0.065 ng/mL (< 0.028) H 03/03/18 01:50 - Assessment/Plan 1. Acute on chronic diastolic HF - Stable with Lasix, bblocker. Not on CATRACHO due to hx of CKD. Lasix was changed to PO from tomorrow. cont. to monitor 2. 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 to monitor on tele 3. HTN - stable with current medication; decrease Coreg from 6.25mg to 3.125mg BID; Cont. monitor 4. CKD stage 3 - improving 5. Hyperlipidemia - on Statin 6. DM type 2 - managed by PCP 7. Alzheimer disease - stable; family at bedside 8. Lt small pleural effusion - On diuretic. 9. hypothyroidism - 10. Bradycardia - HR has been 40s-50s since 1200 today. Decreased Coreg from 6.25mg to 3.125mg BID. MAR reviewed * Echo on 03/03/18 showed EF 45-50%, dilated IVC, posterior hypokinesis, mild dilated bilat. atriums, mild-mod MR and AR, severe TR Review of Systems - Review of Systems Constitutional: reports: no symptoms reported EENTM: reports: no symptoms reported Respiratory: reports: no symptoms reported Cardiac (ROS): reports: no symptoms reported ABD/GI: reports: no symptoms reported : reports: no symptoms reported Musculoskeletal: reports: no symptoms reported <Milton Sanchez - Last Filed: 03/06/18 21:17> Cardiology Progress Note - Objective Vital Signs Temp Pulse Resp BP Pulse Ox 03/06/18 21:01 98.1 F 63 20 168/82 H 94 L 03/06/18 15:52 98.2 F 68 16 164/81 H 98 03/06/18 12:00 97.6 F 49 L 95 H 133/62 95 Weight 163 lb 6.4 oz 03/05/18 03/06/18 03/07/18 06:59 06:59 06:59 Intake Total 890 1070 Output Total 625 750 Balance 265 320 - Labs Result Diagrams: 03/03/18 04:28 03/06/18 09:34 Troponin/CKMB CK-MB (CK-2) 2.6 ng/mL (0-6.6) 03/02/18 19:56 Troponin I 0.065 ng/mL (< 0.028) H 03/03/18 01:50 - Assessment/Plan Pt. seen and eval. by me. I agree with the A/P by the TEACHER [employer] He is more edematous today after sitting up in the chair. The BP appeared to be improved but has increased again. We will continue to adjust the meds.
[2018-03-05] MEDS: Carvedilol 3.125 MG TAB PO SCH (17:46)
[2018-03-05] MEDS: Cephalexin 250 MG CAP PO SCH (21:02)
[2018-03-05] MEDS: Atorvastatin Calcium 10 MG TAB PO SCH (21:03)
[2018-03-06] MEDS: Levothyroxine Sodium 100 MCG TAB PO SCH (05:29)
[2018-03-06] MEDS ORDERED: Furosemide 40 MG TAB PO SCH (07:30)
[2018-03-06] MEDS: hydrALAZINE 25 MG TAB PO SCH ×3 (08:54→21:08)
[2018-03-06] MEDS: Carbidopa/Levodopa 25-100 mg Tablet PO SCH ×4 (08:55→21:08)
[2018-03-06] MEDS: Aspirin 81 mg Enteric Coated Tablet PO SCH (08:55)
[2018-03-06] MEDS: Amlodipine 5 MG TAB PO SCH (08:55)
[2018-03-06] MEDS: Carvedilol 3.125 MG TAB PO SCH ×2 (08:55→17:32)
[2018-03-06] MEDS: Cephalexin 250 MG CAP PO SCH ×2 (08:55→21:09)
[2018-03-06] MEDS: Potassium Chloride 10 MEQ TAB PO SCH (08:55)
[2018-03-06] MEDS: cloNIDine 0.1 MG TAB PO SCH ×2 (08:55→21:09)
[2018-03-06] MEDS ORDERED: Isosorbide Dinitrate 20 MG TAB PO SCH ×2 (09:30→21:00)
--- NOTE | 2018-03-06 10:11 | PDOC.PN ---
- Subjective Encounter Start Date: 03/06/18 Encounter Start Time: 09:00 Patient seen and examined. No new complaints. No overnight events - Objective Resuscitation Status: Resuscitation Status FULL:Full Resuscitation MAR Reviewed: Yes Vital Signs & Weight: Vital Signs (12 hours) Temp Pulse Resp BP BP Pulse Ox 03/06/18 08:06 97.9 F 16 168/79 H 97 03/06/18 04:00 98.2 F 75 16 176/87 H 94 L Weight Weight 163 lb 6.4 oz I&O: 03/05/18 03/06/18 03/07/18 06:59 06:59 06:59 Intake Total 890 1070 Output Total 625 750 Balance 265 320 Result Diagrams: 03/03/18 04:28 03/03/18 04:28 Additional Labs: Accuchecks 03/06/18 03/05/18 03/05/18 05:37 21:03 11:46 POC Glucose 156 H 194 H 244 H EKG Reviewed by me: Yes (nsr) Phys Exam - Physical Examination Constitutional: NAD HEENT: PERRLA, moist MMs, sclera anicteric Neck: no JVD, supple Respiratory: no wheezing, no rales, no rhonchi Cardiovascular: RRR, no rub SM+ parasternal Gastrointestinal: soft, non-tender, no distention, positive bowel sounds Musculoskeletal: pulses present, edema present Neurological: non-focal, normal sensation, moves all 4 limbs Psychiatric: normal affect Skin: no rash, normal turgor Dx/Plan (1) Acute on chronic diastolic ACC/AHA stage C congestive heart failure Code(s): I50.33 - ACUTE ON CHRONIC DIASTOLIC (CONGESTIVE) HEART FAILURE Status : Acute (2) Acute worsening of stage 3 chronic kidney disease Code(s): N18.3 - CHRONIC KIDNEY DISEASE, STAGE 3 (MODERATE) Status: Acute (3) Chest pain Code(s): R07.9 - CHEST PAIN, UNSPECIFIED Status: Acute (4) Demand ischemia Code(s): I24.8 - OTHER FORMS OF ACUTE ISCHEMIC HEART DISEASE Status: Acute (5) CAD (coronary artery disease) Code(s): I25.10 - ATHSCL HEART DISEASE OF [place] CORONARY ARTERY W/O ANG PCTRS Status: Chronic (6) Dementia Code(s): F03.90 - UNSPECIFIED DEMENTIA WITHOUT BEHAVIORAL DISTURBANCE Status: Chronic (7) Diabetes type 2, controlled Code(s): E11.9 - TYPE 2 DIABETES MELLITUS WITHOUT COMPLICATIONS Status: Chronic (8) Dyslipidemia Code(s): E78.5 - HYPERLIPIDEMIA, UNSPECIFIED Status: Chronic (9) Hypertension Code(s): I10 - ESSENTIAL (PRIMARY) HYPERTENSION Status: Chronic Comment: (10) Hypothyroidism Code(s): E03.9 - HYPOTHYROIDISM, UNSPECIFIED Status: Chronic (11) Obesity (BMI 30.0-34.9) Code(s): E66.9 - OBESITY, UNSPECIFIED Status: Chronic (12) Parkinson disease Code(s): G20 - PARKINSON'S DISEASE Status: Chronic (13) Moderate mitral regurgitation Code(s): I34.0 - NONRHEUMATIC MITRAL (VALVE) INSUFFICIENCY Status: Chronic (14) Restrictive cardiomyopathy Code(s): I42.5 - OTHER RESTRICTIVE CARDIOMYOPATHY Status: Chronic (15) Severe tricuspid regurgitation Code(s): I07.1 - RHEUMATIC TRICUSPID INSUFFICIENCY Status: Chronic - Plan cont current plan of care, plan discussed w/ family, PT/OT, social insurance adviser * medication reviewed as below * symptomatic treatment * await placement * continue to adjust his BP meds while in hospital * continue diuresis * discussed with daughter bedside. Review of Systems - Review of Systems Eyes: negative: Pain, Vision Change, Conjunctivae Inflammation, Eyelid Inflammation, Redness, Other ENT: negative: Ear Pain, Ear Discharge, Nose Pain, Nose Discharge, Nose Congestion, Mouth Pain, Mouth Swelling, Throat Pain, Throat Swelling, Other Respiratory: negative: Cough, Dry, Shortness of Breath, Hemoptysis, SOB with Excertion, Pleuritic Pain, Sputum, Wheezing Cardiovascular: edema. negative: chest pain, palpitations, orthopnea, paroxysmal nocturnal dyspnea, light headedness, other Gastrointestinal: negative: Nausea, Vomiting, Abdominal Pain, Diarrhea, Constipation, Melena, Hematochezia, Other Genitourinary: negative: Dysuria, Frequency, Incontinence, Hematuria, Retention , Other Musculoskeletal: negative: Neck Pain, Shoulder Pain, Arm Pain, Back Pain, Hand Pain, Leg Pain, Foot Pain, Other Skin: negative: Rash, Lesions, Bowen, Bruising, Other Other: not reliable with pt due to his cognitive status - Medications/Allergies Allergies/Adverse Reactions: Allergies Allergy/AdvReac Type Severity Reaction Status Date / Time donepezil HCl [From Aricept] Allergy Mild Verified 03/15/16 13:25 Medications: Current Medications Acetaminophen (Tylenol) 650 mg PO Q4H PRN PRN Reason: Headache/Fever or Pain Hydrocodone Bitart/Acetaminophen ([place] 5/325) 1 tab PO Q4H PRN PRN Reason: Moderate Pain (4-6) Al Hydroxide/Mg Hydroxide (Maalox) 15 ml PO Q4H PRN PRN Reason: Heartburn or Indigestion Amlodipine Besylate (Norvasc) 5 mg PO DAILY [facility] Last Admin: 03/06/18 08:55 Dose: 5 mg Artificial Tears (Tears Naturale) 0 drop EA EYE PRN PRN PRN Reason: Dry Eyes Aspirin (Ecotrin) 81 mg PO DAILY [facility] Last Admin: 03/06/18 08:55 Dose: 81 mg Atorvastatin Calcium (Lipitor) 10 mg PO [facility] Last Admin: 03/05/18 21:03 Dose: 10 mg Carbidopa/Levodopa (Sinemet 25-100) 1 tab PO QID [facility] Last Admin: 03/06/18 08:55 Dose: 1 tab Carvedilol (Coreg) 3.125 mg PO BID-[facility] Last Admin: 03/06/18 08:55 Dose: 3.125 mg Cephalexin (Keflex) 500 mg PO BID [facility] Last Admin: 03/06/18 08:55 Dose: 500 mg Clonidine (Catapres) 0.1 mg PO Q4H PRN PRN Reason: BP>180/100 Last Admin: 03/04/18 04:02 Dose: 0.1 mg Clonidine (Catapres) 0.1 mg PO BID [facility] Last Admin: 03/06/18 08:55 Dose: 0.1 mg Dextrose/Water (Dextrose 50%) 25 gm SLOW IVP PRN PRN PRN Reason: Hypoglycemia Furosemide (Lasix) 40 mg PO DAILY-AC [facility] Last Admin: 03/06/18 08:54 Dose: 40 mg Glucagon (Glucagon) 1 mg IM PRN PRN PRN Reason: Hypoglycemia Guaifenesin (Robitussin Sf) 200 mg PO Q4H PRN PRN Reason: Cough Hydralazine HCl (Apresoline) 10 mg SLOW IVP Q4H PRN PRN Reason: Systolic BP > 180 Last Admin: 03/03/18 18:18 Dose: 10 mg Hydralazine HCl (Apresoline) 75 mg PO TID [facility] Last Admin: 03/06/18 08:54 Dose: 75 mg Dextrose/Water (D5w) 1,000 mls @ 0 mls/hr IV .Q0M PRN; As Directed PRN Reason: Hypoglycemia Insulin Human Regular (Humulin R) 0 units SC .MILD SLIDING SCALE PRN PRN Reason: Mild Correctional Scale Isosorbide Dinitrate (Isordil) 20 mg PO BID [facility] Isosorbide Dinitrate (Isordil) 20 mg PO NOW [facility] Stop: 03/06/18 10:30 Levothyroxine Sodium (Synthroid) 100 mcg PO 0600 [facility] Last Admin: 03/06/18 05:29 Dose: 100 mcg Loratadine (Claritin) 10 mg PO DAILYPRN PRN PRN Reason: Sinus Symptoms Magnesium Hydroxide (Milk Of Magnesium) 30 ml PO DAILYPRN PRN PRN Reason: Constipation Mineral Oil/White Petrolatum (Eucerin Cream) 0 gm TOP BIDPRN PRN PRN Reason: Dry Skin Nitroglycerin (Nitrostat) 0.4 mg SL Q5MIN PRN PRN Reason: Chest Pain Ondansetron HCl (Zofran) 4 mg IVP Q6H PRN PRN Reason: Nausea/Vomiting Ondansetron HCl (Zofran Odt) 4 mg PO Q6H PRN PRN Reason: Nausea/Vomiting Phenol (Chloraseptic [place] 180 Ml Bot) 0 ml PO PRN PRN PRN Reason: Sore Throat Potassium Chloride (Klor-Con 10) 10 meq PO QAM-WM [facility] Last Admin: 03/06/18 08:55 Dose: 10 meq Senna (Senokot) 2 tab PO HSPRN PRN PRN Reason: Constipation Sodium Chloride ([place] Nasal [place] 0.65%) 0 ml EA NARE QIDPRN PRN PRN Reason: Nasal Congestion Sodium Chloride (Flush - Normal Saline) 10 ml IVF Q12HR [facility] Last Admin: 03/06/18 08:56 Dose: 10 ml Sodium Chloride (Flush - Normal Saline) 10 ml IVF PRN PRN PRN Reason: Saline Flush Trazodone HCl (Desyrel) 25 mg PO HSPRN PRN PRN Reason: Insomnia
[2018-03-06 10:31] LABS: Anion Gap 13 mmol/L (10-20); BUN (Urea Nitrogen) 40 mg/dL (8.4-25.7); Calc. Creatinine Clearance 29 mL/min (70-130); Calcium 8.7 mg/dL (7.8-10.44); Carbon Dioxide 26 mmol/L (23-31); Chloride 101 mmol/L (98-107); Estimated GFR-MDRD 33; Glucose 153 mg/dL (83-110); Potassium 4.2 mmol/L (3.5-5.1); Sodium 136 mmol/L (136-145)
[2018-03-06] MEDS: Insulin Regular 300 UNITS/3 ML VIAL SC PRN (17:32)
[2018-03-06] MEDS ORDERED: Furosemide 40 MG/4 ML VIAL SLOW IVP SCH (17:45)
--- NOTE | 2018-03-06 17:47 | PDOC.CTH ---
<Betty Brady - Last Filed: 03/06/18 17:44> Cardiology Progress Note - Subjective The pt seen and examined. No overnight events. No cardiac complaints. - Objective Vital Signs Temp Pulse Resp BP BP Pulse Ox 03/06/18 15:52 98.2 F 68 16 164/81 H 98 03/06/18 12:00 97.6 F 49 L 95 H 133/62 95 03/06/18 08:45 97.9 F 62 16 97 03/06/18 08:06 97.9 F 16 168/79 H 97 Weight 163 lb 6.4 oz 03/05/18 03/06/18 03/07/18 06:59 06:59 06:59 Intake Total 890 1070 Output Total 625 750 Balance 265 320 - Physical Examination Lungs: CTA (diminished at bases) Heart: RRR Abdomen: soft Extremities: other: (3-4+ pitting BLE edema) - Telemetry Telemetry Rhythm: SR - Labs Result Diagrams: 03/03/18 04:28 03/06/18 09:34 Troponin/CKMB CK-MB (CK-2) 2.6 ng/mL (0-6.6) 03/02/18 19:56 Troponin I 0.065 ng/mL (< 0.028) H 03/03/18 01:50 - Assessment/Plan 1. Acute on chronic diastolic HF - Change Lasix 40mg from PO to IV daily and one time dose x now for worsening of BLE edema; On bblocker. Not on CATRACHO due to hx of CKD. Cont. to monitor 2. 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 to monitor on tele 3. HTN - Isosorbide 20mg BID from today. Cont. to monitor 4. CKD stage 3 - improving 5. Hyperlipidemia - on Statin 6. DM type 2 - managed by PCP 7. Alzheimer disease - stable; family at bedside 8. Lt small pleural effusion - On diuretic. 9. hypothyroidism - 10. Bradycardia -HR stable since his Coreg was decreased from 6.25mg to 3.125mg BID. MAR reviewed * Echo on 03/03/18 showed EF 45-50%, dilated IVC, posterior hypokinesis, mild dilated bilat. atriums, mild-mod MR and AR, severe TR Review of Systems - Review of Systems Constitutional: reports: no symptoms reported EENTM: reports: no symptoms reported Respiratory: reports: no symptoms reported Cardiac (ROS): reports: no symptoms reported ABD/GI: reports: no symptoms reported : reports: no symptoms reported <Milton Sanchez - Last Filed: 03/06/18 21:23> Cardiology Progress Note - Objective Vital Signs Temp Pulse Resp BP Pulse Ox 03/06/18 21:01 98.1 F 63 20 168/82 H 94 L 03/06/18 15:52 98.2 F 68 16 164/81 H 98 03/06/18 12:00 97.6 F 49 L 95 H 133/62 95 Weight 163 lb 6.4 oz 03/05/18 03/06/18 03/07/18 06:59 06:59 06:59 Intake Total 890 1070 Output Total 625 750 Balance 265 320 - Labs Result Diagrams: 03/03/18 04:28 03/06/18 09:34 Troponin/CKMB CK-MB (CK-2) 2.6 ng/mL (0-6.6) 03/02/18 19:56 Troponin I 0.065 ng/mL (< 0.028) H 03/03/18 01:50 - Assessment/Plan Pt. seen and eval. by me. I agree with the A/P by the [employer]. The BP is still elevated. The lower extremity edema has improved but is still 2+. He may benefit from SNU when he is d/c'd.
[2018-03-06] MEDS: Atorvastatin Calcium 10 MG TAB PO SCH (21:09)
[2018-03-07] MEDS: Levothyroxine Sodium 100 MCG TAB PO SCH (06:30)
[2018-03-07] MEDS: hydrALAZINE 25 MG TAB PO SCH ×3 (08:54→20:45)
[2018-03-07] MEDS: Carvedilol 3.125 MG TAB PO SCH ×2 (08:54→16:18)
[2018-03-07] MEDS: Cephalexin 250 MG CAP PO SCH ×2 (08:54→20:47)
[2018-03-07] MEDS: cloNIDine 0.1 MG TAB PO SCH ×2 (08:54→20:47)
[2018-03-07] MEDS: Carbidopa/Levodopa 25-100 mg Tablet PO SCH ×4 (08:54→20:47)
[2018-03-07] MEDS: Aspirin 81 mg Enteric Coated Tablet PO SCH (08:54)
[2018-03-07] MEDS: Potassium Chloride 10 MEQ TAB PO SCH (08:54)
[2018-03-07] MEDS: Isosorbide Dinitrate 20 MG TAB PO SCH ×2 (08:55→20:46)
[2018-03-07] MEDS: Amlodipine 5 MG TAB PO SCH (08:55)
[2018-03-07] MEDS: Furosemide 40 MG/4 ML VIAL SLOW IVP SCH (08:55)
--- NOTE | 2018-03-07 10:33 | PDOC.PN ---
- Subjective Encounter Start Date: 03/07/18 Encounter Start Time: 08:00 Patient seen and examined for chf. No new complaints. No overnight events - Objective Resuscitation Status: Resuscitation Status FULL:Full Resuscitation MAR Reviewed: Yes Vital Signs & Weight: Vital Signs (12 hours) Temp Pulse Resp BP Pulse Ox 03/07/18 07:23 98.6 F 68 18 179/67 H 100 03/07/18 06:29 63 20 169/93 H 03/07/18 04:39 98 F 67 20 172/84 H 94 L 03/06/18 23:45 97.8 F 61 18 172/79 H 95 Weight Weight 158 lb 8 oz I&O: 03/06/18 03/07/18 03/08/18 06:59 06:59 06:59 Intake Total 1070 160 Output Total 750 625 Balance 320 -465 Result Diagrams: 03/03/18 04:28 03/06/18 09:34 Additional Labs: Accuchecks 03/07/18 03/06/18 03/06/18 06:02 20:50 10:45 POC Glucose 121 H 114 H 151 H 03/05/18 16:42 POC Glucose 183 H EKG Reviewed by me: Yes (nsr) Phys Exam - Physical Examination Constitutional: NAD HEENT: PERRLA, moist MMs, sclera anicteric Neck: no JVD, supple Respiratory: no wheezing, no rales, no rhonchi Cardiovascular: RRR, no rub parasternal SM Gastrointestinal: soft, non-tender, no distention, positive bowel sounds Musculoskeletal: pulses present edema improving Neurological: non-focal, normal sensation, moves all 4 limbs Lymphatic: no nodes Psychiatric: normal affect Skin: no rash, normal turgor Dx/Plan (1) Acute on chronic diastolic ACC/AHA stage C congestive heart failure Code(s): I50.33 - ACUTE ON CHRONIC DIASTOLIC (CONGESTIVE) HEART FAILURE Status : Acute (2) Acute worsening of stage 3 chronic kidney disease Code(s): N18.3 - CHRONIC KIDNEY DISEASE, STAGE 3 (MODERATE) Status: Acute (3) Chest pain Code(s): R07.9 - CHEST PAIN, UNSPECIFIED Status: Resolved (4) Demand ischemia Code(s): I24.8 - OTHER FORMS OF ACUTE ISCHEMIC HEART DISEASE Status: Acute (5) CAD (coronary artery disease) Code(s): I25.10 - ATHSCL HEART DISEASE OF [place] CORONARY ARTERY W/O ANG PCTRS Status: Chronic (6) Dementia Code(s): F03.90 - UNSPECIFIED DEMENTIA WITHOUT BEHAVIORAL DISTURBANCE Status: Chronic (7) Diabetes type 2, controlled Code(s): E11.9 - TYPE 2 DIABETES MELLITUS WITHOUT COMPLICATIONS Status: Chronic (8) Dyslipidemia Code(s): E78.5 - HYPERLIPIDEMIA, UNSPECIFIED Status: Chronic (9) Hypertension Code(s): I10 - ESSENTIAL (PRIMARY) HYPERTENSION Status: Chronic Comment: (10) Hypothyroidism Code(s): E03.9 - HYPOTHYROIDISM, UNSPECIFIED Status: Chronic (11) Obesity (BMI 30.0-34.9) Code(s): E66.9 - OBESITY, UNSPECIFIED Status: Chronic (12) Parkinson disease Code(s): G20 - PARKINSON'S DISEASE Status: Chronic (13) Moderate mitral regurgitation Code(s): I34.0 - NONRHEUMATIC MITRAL (VALVE) INSUFFICIENCY Status: Chronic (14) Restrictive cardiomyopathy Code(s): I42.5 - OTHER RESTRICTIVE CARDIOMYOPATHY Status: Chronic (15) Severe tricuspid regurgitation Code(s): I07.1 - RHEUMATIC TRICUSPID INSUFFICIENCY Status: Chronic - Plan cont current plan of care, PT/OT, psychologist social * continue IV lasix daily while in hospital * medication reviewed as below * symptomatic treatment * await his placement to swing bed * overall stable and slowly improving * will repeat labs tomorrow. Review of Systems - Review of Systems Eyes: negative: Pain, Vision Change, Conjunctivae Inflammation, Eyelid Inflammation, Redness, Other ENT: negative: Ear Pain, Ear Discharge, Nose Pain, Nose Discharge, Nose Congestion, Mouth Pain, Mouth Swelling, Throat Pain, Throat Swelling, Other Respiratory: negative: Cough, Dry, Shortness of Breath, Hemoptysis, SOB with Excertion, Pleuritic Pain, Sputum, Wheezing Cardiovascular: negative: chest pain, palpitations, orthopnea, paroxysmal nocturnal dyspnea, edema, light headedness, other Gastrointestinal: negative: Nausea, Vomiting, Abdominal Pain, Diarrhea, Constipation, Melena, Hematochezia, Other Genitourinary: negative: Dysuria, Frequency, Incontinence, Hematuria, Retention , Other Musculoskeletal: negative: Neck Pain, Shoulder Pain, Arm Pain, Back Pain, Hand Pain, Leg Pain, Foot Pain, Other Other: not reliable due to his level of cognitive status - Medications/Allergies Allergies/Adverse Reactions: Allergies Allergy/AdvReac Type Severity Reaction Status Date / Time donepezil HCl [From Aricept] Allergy Mild Verified 03/15/16 13:25 Medications: Current Medications Acetaminophen (Tylenol) 650 mg PO Q4H PRN PRN Reason: Headache/Fever or Pain Hydrocodone Bitart/Acetaminophen ([place] 5/325) 1 tab PO Q4H PRN PRN Reason: Moderate Pain (4-6) Al Hydroxide/Mg Hydroxide (Maalox) 15 ml PO Q4H PRN PRN Reason: Heartburn or Indigestion Amlodipine Besylate (Norvasc) 5 mg PO DAILY [facility] Last Admin: 03/07/18 08:55 Dose: 5 mg Artificial Tears (Tears Naturale) 0 drop EA EYE PRN PRN PRN Reason: Dry Eyes Aspirin (Ecotrin) 81 mg PO DAILY [facility] Last Admin: 03/07/18 08:54 Dose: 81 mg Atorvastatin Calcium (Lipitor) 10 mg PO HS [facility] Last Admin: 03/06/18 21:09 Dose: 10 mg Carbidopa/Levodopa (Sinemet 25-100) 1 tab PO QID [facility] Last Admin: 03/07/18 08:54 Dose: 1 tab Carvedilol (Coreg) 3.125 mg PO BID-[facility] Last Admin: 03/07/18 08:54 Dose: 3.125 mg Cephalexin (Keflex) 500 mg PO BID [facility] Last Admin: 03/07/18 08:54 Dose: 500 mg Clonidine (Catapres) 0.1 mg PO Q4H PRN PRN Reason: BP>180/100 Last Admin: 03/04/18 04:02 Dose: 0.1 mg Clonidine (Catapres) 0.1 mg PO BID [facility] Last Admin: 03/07/18 08:54 Dose: 0.1 mg Dextrose/Water (Dextrose 50%) 25 gm SLOW IVP PRN PRN PRN Reason: Hypoglycemia Furosemide (Lasix) 40 mg SLOW IVP DAILY [facility] Last Admin: 03/07/18 08:55 Dose: 40 mg Glucagon (Glucagon) 1 mg IM PRN PRN PRN Reason: Hypoglycemia Guaifenesin (Robitussin Sf) 200 mg PO Q4H PRN PRN Reason: Cough Hydralazine HCl (Apresoline) 10 mg SLOW IVP Q4H PRN PRN Reason: Systolic BP > 180 Last Admin: 03/03/18 18:18 Dose: 10 mg Hydralazine HCl (Apresoline) 75 mg PO TID [facility] Last Admin: 03/07/18 08:54 Dose: 75 mg Dextrose/Water (D5w) 1,000 mls @ 0 mls/hr IV .Q0M PRN; As Directed PRN Reason: Hypoglycemia Insulin Human Regular (Humulin R) 0 units SC .MILD SLIDING SCALE PRN PRN Reason: Mild Correctional Scale Last Admin: 03/06/18 17:32 Dose: 2 unit Isosorbide Dinitrate (Isordil) 40 mg PO BID [facility] Last Admin: 03/07/18 08:55 Dose: 40 mg Levothyroxine Sodium (Synthroid) 100 mcg PO 0600 [facility] Last Admin: 03/07/18 06:30 Dose: 100 mcg Loratadine (Claritin) 10 mg PO DAILYPRN PRN PRN Reason: Sinus Symptoms Magnesium Hydroxide (Milk Of Magnesium) 30 ml PO DAILYPRN PRN PRN Reason: Constipation Mineral Oil/White Petrolatum (Eucerin Cream) 0 gm TOP BIDPRN PRN PRN Reason: Dry Skin Nitroglycerin (Nitrostat) 0.4 mg SL Q5MIN PRN PRN Reason: Chest Pain Ondansetron HCl (Zofran) 4 mg IVP Q6H PRN PRN Reason: Nausea/Vomiting Ondansetron HCl (Zofran Odt) 4 mg PO Q6H PRN PRN Reason: Nausea/Vomiting Phenol (Chloraseptic [place] 180 Ml Bot) 0 ml PO PRN PRN PRN Reason: Sore Throat Potassium Chloride (Klor-Con 10) 10 meq PO QAM-WM [facility] Last Admin: 03/07/18 08:54 Dose: 10 meq Senna (Senokot) 2 tab PO HSPRN PRN PRN Reason: Constipation Sodium Chloride ([place] Nasal [place] 0.65%) 0 ml EA NARE QIDPRN PRN PRN Reason: Nasal Congestion Sodium Chloride (Flush - Normal Saline) 10 ml IVF Q12HR [facility] Last Admin: 03/07/18 08:55 Dose: 10 ml Sodium Chloride (Flush - Normal Saline) 10 ml IVF PRN PRN PRN Reason: Saline Flush Trazodone HCl (Desyrel) 25 mg PO HSPRN PRN PRN Reason: Insomnia
--- NOTE | 2018-03-07 12:36 | PDOC.CTH ---
<Betty Brady - Last Filed: 03/07/18 12:32> Cardiology Progress Note - Subjective The pt seen and examined. No overnight events. No cardiac complaints. He is up to chair today and eating well. - Objective Vital Signs Temp Pulse Resp BP Pulse Ox 03/07/18 07:23 98.6 F 68 18 179/67 H 100 03/07/18 06:29 63 20 169/93 H 03/07/18 04:39 98 F 67 20 172/84 H 94 L Weight 158 lb 8 oz 03/06/18 03/07/18 03/08/18 06:59 06:59 06:59 Intake Total 1070 160 Output Total 750 625 Balance 320 -465 - Physical Examination Lungs: CTA (diminished at bases) Heart: RRR Abdomen: soft Extremities: other: (2-3+ pitting edema to RLE, 1-2+ pitting to LLE) - Telemetry Telemetry Rhythm: SR 60s - Labs Result Diagrams: 03/03/18 04:28 03/06/18 09:34 Troponin/CKMB CK-MB (CK-2) 2.6 ng/mL (0-6.6) 03/02/18 19:56 Troponin I 0.065 ng/mL (< 0.028) H 03/03/18 01:50 - Assessment/Plan 1. Acute on chronic diastolic HF - swelling to BLE have been improving with Lasix 40mg IV daily; On bblocker. Not on CATRACHO due to hx of CKD. Cont. to monitor 2. 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 to monitor on tele 3. HTN - Isosorbide was increased from 20mg to 40mg BID today. Cont. to monitor 4. CKD stage 3 - improving 5. Hyperlipidemia - on Statin 6. DM type 2 - managed by PCP 7. Alzheimer disease - stable; family at bedside 8. Lt small pleural effusion - On diuretic. 9. hypothyroidism - 10. Bradycardia -HR stable since his Coreg was decreased from 6.25mg to 3.125mg BID. 11. BLE edema - has improved with Lasix 40mg IV daily; still 2-3+ pitting edema to RLE and 1-2+ pitting edema to LLE. MAR reviewed * Echo on 03/03/18 showed EF 45-50%, dilated IVC, posterior hypokinesis, mild dilated bilat. atriums, mild-mod MR and AR, severe TR Review of Systems - Review of Systems Constitutional: reports: no symptoms reported EENTM: reports: no symptoms reported Respiratory: reports: no symptoms reported Cardiac (ROS): reports: no symptoms reported ABD/GI: reports: no symptoms reported : reports: no symptoms reported <Milton Sanchez - Last Filed: 03/08/18 21:58> Cardiology Progress Note - Objective Vital Signs Temp Pulse Pulse Pulse Resp BP BP 03/08/18 21:05 98.6 F 64 20 03/08/18 16:27 97.7 F 63 17 03/08/18 14:51 66 152/67 H 03/08/18 13:41 72 58 L 184/80 H 03/08/18 12:02 97.2 F L 66 18 BP BP BP Pulse Ox 03/08/18 21:05 171/85 H 96 03/08/18 16:27 160/76 H 97 03/08/18 14:51 03/08/18 13:41 143/68 H 03/08/18 12:02 150/69 H 96 Weight 156 lb 12.8 oz 03/07/18 03/08/18 03/09/18 06:59 06:59 06:59 Intake Total 235 074 4059 Output Total 625 1275 475 Balance -465 485 965 - Labs Result Diagrams: 03/08/18 04:24 03/08/18 04:24 Troponin/CKMB CK-MB (CK-2) 2.6 ng/mL (0-6.6) 03/02/18 19:56 Troponin I 0.065 ng/mL (< 0.028) H 03/03/18 01:50 - Assessment/Plan Pt. was seen and eval. by me. I agree with the A/P by the RAMIRO Brady.He continues to diureses. Chest clear. Mild - mod. edema.
[2018-03-07] MEDS: Atorvastatin Calcium 10 MG TAB PO SCH (20:47)
[2018-03-08 05:05] LABS: #Basophils 0.1 thou/uL (0.0-0.2); #Eosinphils 0.1 thou/uL (0.0-0.7); #Lymphocytes 1.3 thou/uL (1.20-3.40); #Monocytes 0.6 thou/uL (0.11-0.59); #Neutrophils 3.9 thou/uL (1.40-6.50); %Basophils 1.1 % (0.0-1.0); %Lymphocytes 21.4 % (21.0-51.0); %Monocytes 10.8 % (0.0-10.0); %Neutrophils 64.8 % (42.0-75.0); Hemoglobin 10.1 g/dL (14.0-18.0); Mean Corpuscular HGB CONC 33.7 g/dL (32.0-36.0); Mean Corpuscular Hemoglobin 29.2 pg (27.0-31.0); Mean Corpuscular Volume 86.6 fL (78.0-98.0); Mean Platelet Volume 6.9 fL (7.4-10.4); Platelet Count 202 thou/uL (130-400); RBC Distribution Width 14.3 % (11.5-14.5); Red Blood Cell (RBC) Count 3.45 mill/uL (4.70-6.10)
[2018-03-08 05:08] LABS: Anion Gap 11 mmol/L (10-20); BUN (Urea Nitrogen) 43 mg/dL (8.4-25.7); Calc. Creatinine Clearance 25 mL/min (70-130); Calcium 8.2 mg/dL (7.8-10.44); Carbon Dioxide 28 mmol/L (23-31); Chloride 104 mmol/L (98-107); Estimated GFR-MDRD 30; Glucose 122 mg/dL (83-110); Potassium 3.7 mmol/L (3.5-5.1); Sodium 139 mmol/L (136-145)
[2018-03-08] MEDS: Levothyroxine Sodium 100 MCG TAB PO SCH (06:07)
[2018-03-08] MEDS: hydrALAZINE 25 MG TAB PO SCH ×3 (08:32→21:14)
[2018-03-08] MEDS: Potassium Chloride 10 MEQ TAB PO SCH (08:33)
[2018-03-08] MEDS: Carbidopa/Levodopa 25-100 mg Tablet PO SCH ×4 (08:33→21:15)
[2018-03-08] MEDS: Amlodipine 5 MG TAB PO SCH (08:33)
[2018-03-08] MEDS: Isosorbide Dinitrate 20 MG TAB PO SCH ×2 (08:33→21:15)
[2018-03-08] MEDS: Aspirin 81 mg Enteric Coated Tablet PO SCH (08:33)
[2018-03-08] MEDS: Cephalexin 250 MG CAP PO SCH ×2 (08:33→21:14)
[2018-03-08] MEDS: cloNIDine 0.1 MG TAB PO SCH ×2 (08:34→21:13)
[2018-03-08] MEDS: Carvedilol 3.125 MG TAB PO SCH ×2 (08:34→16:31)
[2018-03-08] MEDS: Furosemide 40 MG/4 ML VIAL SLOW IVP SCH (08:35)
--- NOTE | 2018-03-08 10:30 | PRG ---
DATE OF SERVICE: 03/08/2018 ADVANCE CARE PLANNING NOTE CLINICAL SUMMARY: An 88-year-old male who has Parkinson's disease and advanced Alzheimer's dementia who was admitted in hospital 3 days ago for acute on chronic diastolic congestive heart failure and d iagnosed with severe tricuspid regurgitation. He also has fluctuating hypertension. Today, I spoke with the patient's at bedside along with the patient, though patient is not able to make any good decision, but because of dementia and that is why patient's is surrogate decisi on maker. Today, I discussed with her about code status with her and I spent enough time up to discuss about wh at code status means and what DNR means and finally she understood meaning of DNR and she expressed a nd made a decision for patient that she does not want her to be intubated or done CPR in case of cardiopulmonary arrest. In that case, she prefers natural . I also discussed with him abou t DNR bracelet out of hospital DNR paperwork which will be done in hospital as well. Other goal of care including medical treatment discussed with her. She wanted to continue medical tr eatment and she wanted to send him to swing bed to get a little bit stronger before she can go home. Further decision regarding tube feeding and comfort care. She will decide later on depending upon t he patient's clinical conditions in the next several months. Total time spent providing this advance care planning is 16 minutes in addition to my medical care fo r this particular patient today.
--- NOTE | 2018-03-08 10:51 | PDOC.PN ---
- Subjective Encounter Start Date: 03/08/18 Encounter Start Time: 08:00 Patient seen and examined for CHF. No new complaints. No overnight events - Objective Resuscitation Status: Resuscitation Status DNR:Do Not Resuscitate MAR Reviewed: Yes Vital Signs & Weight: Vital Signs (12 hours) Temp Pulse Resp BP BP Pulse Ox 03/08/18 08:33 68 03/08/18 08:32 68 03/08/18 08:26 97.7 F 68 17 162/72 H 96 03/08/18 03:25 98.1 F 68 16 164/98 H 94 L 03/07/18 23:27 64 16 152/77 H 97 Weight Weight 156 lb 12.8 oz I&O: 03/07/18 03/08/18 03/09/18 06:59 06:59 06:59 Intake Total 160 790 Output Total 625 1275 Balance -465 -485 Result Diagrams: 03/08/18 04:24 03/08/18 04:24 Additional Labs: Accuchecks 03/08/18 03/07/18 03/07/18 06:14 20:55 16:43 POC Glucose 118 H 218 H 181 H 03/07/18 03/06/18 10:54 16:50 POC Glucose 132 H 196 H EKG Reviewed by me: Yes (nsr) Phys Exam - Physical Examination Constitutional: NAD HEENT: PERRLA, moist MMs, sclera anicteric Neck: no JVD, supple Respiratory: no wheezing, no rales, no rhonchi Cardiovascular: RRR, no rub SM+ Gastrointestinal: soft, non-tender, no distention, positive bowel sounds Musculoskeletal: no edema, pulses present Neurological: non-focal, normal sensation Psychiatric: normal affect, A&O x 3 Skin: no rash, normal turgor Dx/Plan (1) Acute on chronic diastolic ACC/AHA stage C congestive heart failure Code(s): I50.33 - ACUTE ON CHRONIC DIASTOLIC (CONGESTIVE) HEART FAILURE Status : Acute (2) Acute worsening of stage 3 chronic kidney disease Code(s): N18.3 - CHRONIC KIDNEY DISEASE, STAGE 3 (MODERATE) Status: Acute (3) Chest pain Code(s): R07.9 - CHEST PAIN, UNSPECIFIED Status: Resolved (4) Demand ischemia Code(s): I24.8 - OTHER FORMS OF ACUTE ISCHEMIC HEART DISEASE Status: Acute (5) CAD (coronary artery disease) Code(s): I25.10 - ATHSCL HEART DISEASE OF [place] CORONARY ARTERY W/O ANG PCTRS Status: Chronic (6) Dementia Code(s): F03.90 - UNSPECIFIED DEMENTIA WITHOUT BEHAVIORAL DISTURBANCE Status: Chronic (7) Diabetes type 2, controlled Code(s): E11.9 - TYPE 2 DIABETES MELLITUS WITHOUT COMPLICATIONS Status: Chronic (8) Dyslipidemia Code(s): E78.5 - HYPERLIPIDEMIA, UNSPECIFIED Status: Chronic (9) Hypertension Code(s): I10 - ESSENTIAL (PRIMARY) HYPERTENSION Status: Chronic Comment: (10) Hypothyroidism Code(s): E03.9 - HYPOTHYROIDISM, UNSPECIFIED Status: Chronic (11) Obesity (BMI 30.0-34.9) Code(s): E66.9 - OBESITY, UNSPECIFIED Status: Chronic (12) Parkinson disease Code(s): G20 - PARKINSON'S DISEASE Status: Chronic (13) Moderate mitral regurgitation Code(s): I34.0 - NONRHEUMATIC MITRAL (VALVE) INSUFFICIENCY Status: Chronic (14) Restrictive cardiomyopathy Code(s): I42.5 - OTHER RESTRICTIVE CARDIOMYOPATHY Status: Chronic (15) Severe tricuspid regurgitation Code(s): I07.1 - RHEUMATIC TRICUSPID INSUFFICIENCY Status: Chronic - Plan cont current plan of care, plan discussed w/ family * code status change to DNR, see my advance care planning note * medication reviewed as below * symptomatic treatment * continue lasix, edema improving, monitor renal function * await swing bed placement. Review of Systems - Review of Systems Other: not reliable due to dementia - Medications/Allergies Allergies/Adverse Reactions: Allergies Allergy/AdvReac Type Severity Reaction Status Date / Time donepezil HCl [From Aricept] Allergy Mild Verified 03/15/16 13:25 Medications: Current Medications Acetaminophen (Tylenol) 650 mg PO Q4H PRN PRN Reason: Headache/Fever or Pain Hydrocodone Bitart/Acetaminophen ([place] 5/325) 1 tab PO Q4H PRN PRN Reason: Moderate Pain (4-6) Al Hydroxide/Mg Hydroxide (Maalox) 15 ml PO Q4H PRN PRN Reason: Heartburn or Indigestion Amlodipine Besylate (Norvasc) 5 mg PO DAILY [facility] Last Admin: 03/08/18 08:33 Dose: 5 mg Artificial Tears (Tears Naturale) 0 drop EA EYE PRN PRN PRN Reason: Dry Eyes Aspirin (Ecotrin) 81 mg PO DAILY [facility] Last Admin: 03/08/18 08:33 Dose: 81 mg Atorvastatin Calcium (Lipitor) 10 mg PO HS [facility] Last Admin: 03/07/18 20:47 Dose: 10 mg Carbidopa/Levodopa (Sinemet 25-100) 1 tab PO QID [facility] Last Admin: 03/08/18 08:33 Dose: 1 tab Carvedilol (Coreg) 3.125 mg PO BID-[facility] Last Admin: 03/08/18 08:34 Dose: 3.125 mg Cephalexin (Keflex) 500 mg PO BID [facility] Last Admin: 03/08/18 08:33 Dose: 500 mg Clonidine (Catapres) 0.1 mg PO Q4H PRN PRN Reason: BP>180/100 Last Admin: 03/04/18 04:02 Dose: 0.1 mg Clonidine (Catapres) 0.1 mg PO BID [facility] Last Admin: 03/08/18 08:34 Dose: 0.1 mg Dextrose/Water (Dextrose 50%) 25 gm SLOW IVP PRN PRN PRN Reason: Hypoglycemia Furosemide (Lasix) 40 mg SLOW IVP DAILY [facility] Last Admin: 03/08/18 08:35 Dose: 40 mg Glucagon (Glucagon) 1 mg IM PRN PRN PRN Reason: Hypoglycemia Guaifenesin (Robitussin Sf) 200 mg PO Q4H PRN PRN Reason: Cough Hydralazine HCl (Apresoline) 10 mg SLOW IVP Q4H PRN PRN Reason: Systolic BP > 180 Last Admin: 03/03/18 18:18 Dose: 10 mg Hydralazine HCl (Apresoline) 75 mg PO TID [facility] Last Admin: 03/08/18 08:32 Dose: 75 mg Dextrose/Water (D5w) 1,000 mls @ 0 mls/hr IV .Q0M PRN; As Directed PRN Reason: Hypoglycemia Insulin Human Regular (Humulin R) 0 units SC .MILD SLIDING SCALE PRN PRN Reason: Mild Correctional Scale Last Admin: 03/06/18 17:32 Dose: 2 unit Isosorbide Dinitrate (Isordil) 40 mg PO BID [facility] Last Admin: 03/08/18 08:33 Dose: 40 mg Levothyroxine Sodium (Synthroid) 100 mcg PO 0600 [facility] Last Admin: 03/08/18 06:07 Dose: 100 mcg Loratadine (Claritin) 10 mg PO DAILYPRN PRN PRN Reason: Sinus Symptoms Magnesium Hydroxide (Milk Of Magnesium) 30 ml PO DAILYPRN PRN PRN Reason: Constipation Mineral Oil/White Petrolatum (Eucerin Cream) 0 gm TOP BIDPRN PRN PRN Reason: Dry Skin Nitroglycerin (Nitrostat) 0.4 mg SL Q5MIN PRN PRN Reason: Chest Pain Ondansetron HCl (Zofran) 4 mg IVP Q6H PRN PRN Reason: Nausea/Vomiting Ondansetron HCl (Zofran Odt) 4 mg PO Q6H PRN PRN Reason: Nausea/Vomiting Phenol (Chloraseptic [place] 180 Ml Bot) 0 ml PO PRN PRN PRN Reason: Sore Throat Potassium Chloride (Klor-Con 10) 10 meq PO QAM-WM [facility] Last Admin: 03/08/18 08:33 Dose: 10 meq Senna (Senokot) 2 tab PO HSPRN PRN PRN Reason: Constipation Sodium Chloride ([place] Nasal [place] 0.65%) 0 ml EA NARE QIDPRN PRN PRN Reason: Nasal Congestion Sodium Chloride (Flush - Normal Saline) 10 ml IVF Q12HR [facility] Last Admin: 03/08/18 08:35 Dose: 10 ml Sodium Chloride (Flush - Normal Saline) 10 ml IVF PRN PRN PRN Reason: Saline Flush Trazodone HCl (Desyrel) 25 mg PO HSPRN PRN PRN Reason: Insomnia
[2018-03-08] MEDS: Insulin Regular 300 UNITS/3 ML VIAL SC PRN (12:07)
--- NOTE | 2018-03-08 13:55 | PDOC.CTH ---
<Betty Brady - Last Filed: 03/08/18 13:49> Cardiology Progress Note - Subjective The pt seen and examined. No overnight events. No cardiac complaints. He is resting well in the bed. - Objective Vital Signs Temp Pulse Resp BP BP Pulse Ox 03/08/18 12:02 97.2 F L 66 18 150/69 H 96 03/08/18 08:33 68 03/08/18 08:32 68 03/08/18 08:26 97.7 F 68 17 162/72 H 96 03/08/18 03:25 98.1 F 68 16 164/98 H 94 L Weight 156 lb 12.8 oz 03/07/18 03/08/18 03/09/18 06:59 06:59 06:59 Intake Total 160 790 Output Total 625 1275 Balance -465 -485 - Physical Examination Lungs: CTA Heart: RRR Abdomen: soft Extremities: other: (2+ pitting BLE edema) - Telemetry Telemetry Rhythm: SR 60s - Labs Result Diagrams: 03/08/18 04:24 03/08/18 04:24 Troponin/CKMB CK-MB (CK-2) 2.6 ng/mL (0-6.6) 03/02/18 19:56 Troponin I 0.065 ng/mL (< 0.028) H 03/03/18 01:50 - Assessment/Plan 1. Acute on chronic diastolic HF - swelling to BLE have been improving with Lasix 40mg IV daily; On bblocker. Not on CATRACHO due to hx of CKD. Cont. to monitor 2. 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 to monitor on tele 3. HTN - Isosorbide was increased from 20mg to 40mg BID today. Cont. to monitor 4. CKD stage 3 - improving 5. Hyperlipidemia - on Statin 6. DM type 2 - managed by PCP 7. Alzheimer disease - stable; family at bedside 8. Lt small pleural effusion - On diuretic. 9. hypothyroidism - 10. Bradycardia -HR stable since his Coreg was decreased from 6.25mg to 3.125mg BID. 11. BLE edema - has improved with Lasix 40mg IV daily; still 2-3+ pitting edema to RLE and 1-2+ pitting edema to LLE. MAR reviewed * Echo on 03/03/18 showed EF 45-50%, dilated IVC, posterior hypokinesis, mild dilated bilat. atriums, mild-mod MR and AR, severe TR * Code status: DNR Review of Systems - Review of Systems Constitutional: reports: no symptoms reported EENTM: reports: no symptoms reported Respiratory: reports: no symptoms reported Cardiac (ROS): reports: no symptoms reported ABD/GI: reports: no symptoms reported : reports: no symptoms reported <Milton Sanchez - Last Filed: 03/08/18 22:00> Cardiology Progress Note - Objective Vital Signs Temp Pulse Pulse Pulse Resp BP BP 03/08/18 21:05 98.6 F 64 20 03/08/18 16:27 97.7 F 63 17 03/08/18 14:51 66 152/67 H 03/08/18 13:41 72 58 L 184/80 H 03/08/18 12:02 97.2 F L 66 18 BP BP BP Pulse Ox 03/08/18 21:05 171/85 H 96 03/08/18 16:27 160/76 H 97 03/08/18 14:51 03/08/18 13:41 143/68 H 03/08/18 12:02 150/69 H 96 Weight 156 lb 12.8 oz 03/07/18 03/08/18 03/09/18 06:59 06:59 06:59 Intake Total 110 261 0920 Output Total 625 1275 475 Balance -465 -485 965 - Labs Result Diagrams: 03/08/18 04:24 03/08/18 04:24 Troponin/CKMB CK-MB (CK-2) 2.6 ng/mL (0-6.6) 03/02/18 19:56 Troponin I 0.065 ng/mL (< 0.028) H 03/03/18 01:50 - Assessment/Plan Pt. was seen and eval. by me. I agree with the A/P by the DRESSAGE INSTRUCTOR Jose Antonio.He feels better. Still some edema but the BP has improved and he is tolerating the NTG.
[2018-03-08] MEDS: Atorvastatin Calcium 10 MG TAB PO SCH (21:15)
[2018-03-09] MEDS: Levothyroxine Sodium 100 MCG TAB PO SCH (06:16)
[2018-03-09 09:14] VITALS: TEMP 97.7
[2018-03-09] MEDS: hydrALAZINE 25 MG TAB PO SCH (09:15)
[2018-03-09] MEDS: Furosemide 40 MG/4 ML VIAL SLOW IVP SCH (09:15)
[2018-03-09] MEDS: Potassium Chloride 10 MEQ TAB PO SCH (09:16)
[2018-03-09] MEDS: Isosorbide Dinitrate 20 MG TAB PO SCH (09:16)
[2018-03-09] MEDS: Aspirin 81 mg Enteric Coated Tablet PO SCH (09:16)
[2018-03-09] MEDS: cloNIDine 0.1 MG TAB PO SCH (09:16)
[2018-03-09] MEDS: Carbidopa/Levodopa 25-100 mg Tablet PO SCH ×2 (09:17→12:03)
[2018-03-09] MEDS: Carvedilol 3.125 MG TAB PO SCH (09:17)
[2018-03-09] MEDS: Amlodipine 5 MG TAB PO SCH (09:17)
[2018-03-09] MEDS: Cephalexin 250 MG CAP PO SCH (09:36)
--- NOTE | 2018-03-09 10:58 | PDOC.PN ---
- Subjective Encounter Start Date: 03/09/18 Encounter Start Time: 08:20 Patient seen and examined. No new complaints. No overnight events - Objective Resuscitation Status: Resuscitation Status DNR:Do Not Resuscitate MAR Reviewed: Yes Vital Signs & Weight: Vital Signs (12 hours) Temp Pulse Resp BP BP BP BP 03/09/18 09:17 79 03/09/18 09:16 152/67 H 03/09/18 09:15 79 03/09/18 08:25 97.7 F 79 17 146/72 H 03/09/18 03:45 98.2 F 67 20 174/81 H 03/09/18 00:23 59 L 20 139/65 Pulse Ox 03/09/18 09:17 03/09/18 09:16 03/09/18 09:15 03/09/18 08:25 95 03/09/18 03:45 92 L 03/09/18 00:23 Weight Weight 155 lb 9.6 oz I&O: 03/08/18 03/09/18 03/10/18 06:59 06:59 06:59 Intake Total 790 1750 240 Output Total 1275 950 175 Balance -485 800 65 Result Diagrams: 03/08/18 04:24 03/08/18 04:24 Additional Labs: Accuchecks 03/09/18 03/09/18 03/08/18 10:23 06:21 21:22 POC Glucose 242 H 119 H 173 H 03/08/18 03/08/18 16:53 11:03 POC Glucose 124 H 221 H EKG Reviewed by me: Yes Phys Exam - Physical Examination Constitutional: NAD HEENT: PERRLA, moist MMs, sclera anicteric Neck: no JVD, supple Respiratory: no wheezing, no rales, no rhonchi Cardiovascular: RRR, no rub SM+ Gastrointestinal: soft, non-tender, no distention, positive bowel sounds Musculoskeletal: pulses present, edema present Neurological: non-focal, normal sensation, moves all 4 limbs Psychiatric: normal affect Skin: no rash, normal turgor Dx/Plan (1) Acute on chronic diastolic ACC/AHA stage C congestive heart failure Code(s): I50.33 - ACUTE ON CHRONIC DIASTOLIC (CONGESTIVE) HEART FAILURE Status : Acute (2) Acute worsening of stage 3 chronic kidney disease Code(s): N18.3 - CHRONIC KIDNEY DISEASE, STAGE 3 (MODERATE) Status: Acute (3) Chest pain Code(s): R07.9 - CHEST PAIN, UNSPECIFIED Status: Resolved (4) Demand ischemia Code(s): I24.8 - OTHER FORMS OF ACUTE ISCHEMIC HEART DISEASE Status: Acute (5) CAD (coronary artery disease) Code(s): I25.10 - ATHSCL HEART DISEASE OF [place] CORONARY ARTERY W/O ANG PCTRS Status: Chronic (6) Dementia Code(s): F03.90 - UNSPECIFIED DEMENTIA WITHOUT BEHAVIORAL DISTURBANCE Status: Chronic (7) Diabetes type 2, controlled Code(s): E11.9 - TYPE 2 DIABETES MELLITUS WITHOUT COMPLICATIONS Status: Chronic (8) Dyslipidemia Code(s): E78.5 - HYPERLIPIDEMIA, UNSPECIFIED Status: Chronic (9) Hypertension Code(s): I10 - ESSENTIAL (PRIMARY) HYPERTENSION Status: Chronic Comment: (10) Hypothyroidism Code(s): E03.9 - HYPOTHYROIDISM, UNSPECIFIED Status: Chronic (11) Obesity (BMI 30.0-34.9) Code(s): E66.9 - OBESITY, UNSPECIFIED Status: Chronic (12) Parkinson disease Code(s): G20 - PARKINSON'S DISEASE Status: Chronic (13) Moderate mitral regurgitation Code(s): I34.0 - NONRHEUMATIC MITRAL (VALVE) INSUFFICIENCY Status: Chronic (14) Restrictive cardiomyopathy Code(s): I42.5 - OTHER RESTRICTIVE CARDIOMYOPATHY Status: Chronic (15) Severe tricuspid regurgitation Code(s): I07.1 - RHEUMATIC TRICUSPID INSUFFICIENCY Status: Chronic - Plan cont current plan of care, plan discussed w/ family, PT/OT, social science research assistant * medication reviewed as below * symptomatic treatment * see discharge summery later today if discharged * stable for discharge today once swing bed arranged * discharge medication reconciliation done * await swing bed placement * continue diuresis and meds adjustment while in hospital. Review of Systems - Review of Systems Other: not reliable with pt due to dementia - Medications/Allergies Allergies/Adverse Reactions: Allergies Allergy/AdvReac Type Severity Reaction Status Date / Time donepezil HCl [From Aricept] Allergy Mild Verified 03/15/16 13:25 Medications: Current Medications Acetaminophen (Tylenol) 650 mg PO Q4H PRN PRN Reason: Headache/Fever or Pain Hydrocodone Bitart/Acetaminophen ([place] 5/325) 1 tab PO Q4H PRN PRN Reason: Moderate Pain (4-6) Al Hydroxide/Mg Hydroxide (Maalox) 15 ml PO Q4H PRN PRN Reason: Heartburn or Indigestion Amlodipine Besylate (Norvasc) 5 mg PO DAILY [facility] Last Admin: 03/09/18 09:17 Dose: 5 mg Artificial Tears (Tears Naturale) 0 drop EA EYE PRN PRN PRN Reason: Dry Eyes Aspirin (Ecotrin) 81 mg PO DAILY [facility] Last Admin: 03/09/18 09:16 Dose: 81 mg Atorvastatin Calcium (Lipitor) 10 mg PO HS [facility] Last Admin: 03/08/18 21:15 Dose: 10 mg Carbidopa/Levodopa (Sinemet 25-100) 1 tab PO QID [facility] Last Admin: 03/09/18 09:17 Dose: 1 tab Carvedilol (Coreg) 3.125 mg PO BID[facility] Last Admin: 03/09/18 09:17 Dose: 3.125 mg Cephalexin (Keflex) 500 mg PO BID [facility] Last Admin: 03/09/18 09:36 Dose: 500 mg Clonidine (Catapres) 0.1 mg PO Q4H PRN PRN Reason: BP>180/100 Last Admin: 03/04/18 04:02 Dose: 0.1 mg Clonidine (Catapres) 0.1 mg PO BID [facility] Last Admin: 03/09/18 09:16 Dose: 0.1 mg Dextrose/Water (Dextrose 50%) 25 gm SLOW IVP PRN PRN PRN Reason: Hypoglycemia Furosemide (Lasix) 40 mg SLOW IVP DAILY [facility] Last Admin: 03/09/18 09:15 Dose: 40 mg Glucagon (Glucagon) 1 mg IM PRN PRN PRN Reason: Hypoglycemia Guaifenesin (Robitussin Sf) 200 mg PO Q4H PRN PRN Reason: Cough Hydralazine HCl (Apresoline) 10 mg SLOW IVP Q4H PRN PRN Reason: Systolic BP > 180 Last Admin: 03/03/18 18:18 Dose: 10 mg Hydralazine HCl (Apresoline) 75 mg PO TID [facility] Last Admin: 03/09/18 09:15 Dose: 75 mg Dextrose/Water (D5w) 1,000 mls @ 0 mls/hr IV .Q0M PRN; As Directed PRN Reason: Hypoglycemia Insulin Human Regular (Humulin R) 0 units SC .MILD SLIDING SCALE PRN PRN Reason: Mild Correctional Scale Last Admin: 03/08/18 12:07 Dose: 3 unit Isosorbide Dinitrate (Isordil) 40 mg PO BID [facility] Last Admin: 03/09/18 09:16 Dose: 40 mg Levothyroxine Sodium (Synthroid) 100 mcg PO 0600 [facility] Last Admin: 03/09/18 06:16 Dose: 100 mcg Loratadine (Claritin) 10 mg PO DAILYPRN PRN PRN Reason: Sinus Symptoms Magnesium Hydroxide (Milk Of Magnesium) 30 ml PO DAILYPRN PRN PRN Reason: Constipation Mineral Oil/White Petrolatum (Eucerin Cream) 0 gm TOP BIDPRN PRN PRN Reason: Dry Skin Nitroglycerin (Nitrostat) 0.4 mg SL Q5MIN PRN PRN Reason: Chest Pain Ondansetron HCl (Zofran) 4 mg IVP Q6H PRN PRN Reason: Nausea/Vomiting Ondansetron HCl (Zofran Odt) 4 mg PO Q6H PRN PRN Reason: Nausea/Vomiting Phenol (Chloraseptic [place] 180 Ml Bot) 0 ml PO PRN PRN PRN Reason: Sore Throat Potassium Chloride (Klor-Con 10) 10 meq PO QAM-WM [facility] Last Admin: 03/09/18 09:16 Dose: 10 meq Senna (Senokot) 2 tab PO HSPRN PRN PRN Reason: Constipation Sodium Chloride ([place] Nasal [place] 0.65%) 0 ml EA NARE QIDPRN PRN PRN Reason: Nasal Congestion Sodium Chloride (Flush - Normal Saline) 10 ml IVF Q12HR [facility] Last Admin: 03/09/18 09:15 Dose: 10 ml Sodium Chloride (Flush - Normal Saline) 10 ml IVF PRN PRN PRN Reason: Saline Flush Trazodone HCl (Desyrel) 25 mg PO HSPRN PRN PRN Reason: Insomnia
[2018-03-09] MEDS: Insulin Regular 300 UNITS/3 ML VIAL SC PRN (12:02)
--- NOTE | 2018-03-09 12:42 | DIS ---
DATE OF ADMISSION: 03/02/2018 DATE OF DISCHARGE: 03/09/2018 PRIMARY CARE PHYSICIAN: Jeff Morton M.D. DISCHARGE DISPOSITION: Swing bed at [facility]. PRIMARY DISCHARGE DIAGNOSES: Acute on chronic diastolic congestive heart failure, stage C; acute on chronic kidney failure, stage 3; demand ischemia of myocardium; severe tricuspid regurgitation; chest pain, ruled out acute coronary syndrome, likely due to hypertension. SECONDARY DISCHARGE DIAGNOSES: Restrictive cardiomyopathy; Parkinson's disease; dementia; obesity wi th BMI 26; severe tricuspid regurgitation; moderate mitral regurgitation; hypothyroidism; hypertensio n; dyslipidemia; diabetes, type 2; coronary artery disease; chronic kidney disease, stage 3; chronic diastolic heart failure. PRIMARY PROCEDURE/OPERATION: None. RADIOLOGICAL INVESTIGATION: Chest x-ray showed pleural effusion. Echocardiography showed EF 45%-50% , severe tricuspid regurgitation, and moderate mitral regurgitation. SIGNIFICANT LABORATORY DATA: WBC 6.0, hemoglobin 10.1, platelets 202. Sodium 139, potassium 3.7, BU N 43, creatinine 2.09, calcium 8.2, troponin 0.066. BNP 2105, AST 20, ALT less than 7, alkaline phos phatase 71, albumin 3.7. DISCHARGE MEDICATIONS: Amlodipine 5 mg p.o. daily, aspirin 81 mg p.o. daily, Sinemet 25/100 one tabl et q.i.d., Coreg 6.25 mg p.o. b.i.d., clonidine 0.1 mg p.o. b.i.d., Lasix 40 mg p.o. daily, Humalog i nsulin as per sliding scale before meal, hydralazine 75 mg p.o. t.i.d., Isordil 40 mg p.o. b.i.d., le vothyroxine 100 mcg p.o. daily, potassium chloride 10 mEq p.o. daily, Zocor 10 mg p.o. at bedtime. CODE STATUS: DNR. CONTRAINDICATIONS: This patient is not on CATRACHO inhibitor or ARB, because of renal failure, instead th e patient is on hydralazine and mononitrate regimen. ALLERGIES: ARICEPT. INPATIENT CONSULTANTS: Cardiology group was following while in hospital. TEST RESULTS PENDING ON DISCHARGE: None. DISCHARGE PLAN: Post hospital, the patient will follow up with Dr. Sanchez after discharge from [facility]. The patient will be discharged to swing bed where his blood pressure will be monitored. HOSPITAL COURSE: This is an 88-year-old male, who has Parkinson's disease and dementia, who was brou ght to hospital with increasing lower extremity edema and shortness of breath. This patient had a si gnificantly elevated BNP and his troponin was also elevated as well as his creatinine was also elevat ed. We kept this patient on hospital. We treated him with Lasix for his volume overload. We did ec hocardiography, which showed a slightly low EF with severe tricuspid regurgitation and moderate jackson l regurgitation. Cardiology group was following while in hospital. We adjusted medication as above. The patient had a fluctuating hypertension while in hospital. This patient has underlying dementia and that is why patient's made him DNR. We had a lengthy discussion about code status during t his admission. We discontinued metformin and instead we started on Humalog insulin as per sliding sc verna. Above-mentioned medication was currently adjusted. The patient eventually will follow up with primary care physician as well as primary deputy chief executive in 1 or 2 weeks. The patient has physical deconditioning and that is why family member requested his placement and the y preferred [facility] swing bed. With help of case monitor, we arranged [facility] bed. Paper work for discharge done. Discharge medication reconciliation done. Plan of care discussed wit h the patient's at bedside today. The patient is seen and examined at bedside today. Please see my progress note from today for furthe r detail. Total time spent on discharge day, 31 minutes.
[2018-03-09 12:43] VITALS: BP 136/63
--- NOTE | 2018-03-09 15:27 | PDOC.CTH ---
Cardiology Progress Note - Subjective The pt seen and examined. No overnight events. No cardiac complaints. He is up to chair without any distress. Wearing compression stockings. - Objective Vital Signs Temp Pulse Pulse Pulse Resp BP BP 03/09/18 12:05 57 L 17 03/09/18 10:34 65 68 136/63 03/09/18 09:17 79 03/09/18 09:16 152/67 H 03/09/18 09:15 79 03/09/18 08:25 97.7 F 79 17 03/09/18 03:45 98.2 F 67 20 BP BP BP BP Pulse Ox Pulse Ox Pulse Ox 03/09/18 12:05 144/69 H 95 03/09/18 10:34 124/59 L 95 95 03/09/18 09:17 03/09/18 09:16 03/09/18 09:15 03/09/18 08:25 146/72 H 95 03/09/18 03:45 174/81 H 92 L Weight 155 lb 9.6 oz 03/08/18 03/09/18 03/10/18 06:59 06:59 06:59 Intake Total 790 1750 240 Output Total 1275 950 175 Balance -485 800 65 - Physical Examination Lungs: CTA Heart: RRR Abdomen: soft Extremities: other: (SR) - Labs Result Diagrams: 03/08/18 04:24 03/08/18 04:24 Troponin/CKMB CK-MB (CK-2) 2.6 ng/mL (0-6.6) 03/02/18 19:56 Troponin I 0.065 ng/mL (< 0.028) H 03/03/18 01:50 - Assessment/Plan 1. Acute on chronic diastolic HF - swelling to BLE have been improving with Lasix 40mg IV daily, which will be changed to Po; On bblocker. Not on CATRACHO due to hx of CKD. Cont. to monitor 2. 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 to monitor on tele 3. HTN - Isosorbide was increased from 20mg to 40mg BID today. Cont. to monitor 4. CKD stage 3 - improving 5. Hyperlipidemia - on Statin 6. DM type 2 - managed by PCP 7. Alzheimer disease - stable; family at bedside 8. Lt small pleural effusion - On diuretic. 9. hypothyroidism - 10. Bradycardia -HR stable since his Coreg was decreased from 6.25mg to 3.125mg BID. 11. BLE edema - has improved with Lasix 40mg IV daily; still 2-3+ pitting edema to RLE and 1-2+ pitting edema to LLE. MAR reviewed * Echo on 03/03/18 showed EF 45-50%, dilated IVC, posterior hypokinesis, mild dilated bilat. atriums, mild-mod MR and AR, severe TR * Code status: DNR Review of Systems - Review of Systems Constitutional: reports: no symptoms reported EENTM: reports: no symptoms reported Respiratory: reports: no symptoms reported Cardiac (ROS): reports: no symptoms reported ABD/GI: reports: no symptoms reported
== END 2018-03-09 14:47 | disposition swing bed (61) | DRG 291 ==
LOC: ERS 19:22 → 2NO 21:13
PROVIDERS: ADMIT Hospitalist; ATTEND Hospitalist
DX: I13.0 Hypertensive heart and chronic kidney disease with heart failure and stage 1 through stage 4 chronic kidney disease, or unspecified chronic kidney disease (principal); I50.33 Acute on chronic diastolic (congestive) heart failure; N17.9 Acute kidney failure, unspecified; I24.8 Other forms of acute ischemic heart disease; N18.3 Chronic kidney disease, stage 3 (moderate); E11.22 Type 2 diabetes mellitus with diabetic chronic kidney disease; I25.10 Atherosclerotic heart disease of native coronary artery without angina pectoris; Z95.1 Presence of aortocoronary bypass graft; E78.5 Hyperlipidemia, unspecified; G30.9 Alzheimer's disease, unspecified; F02.80 Dementia in other diseases classified elsewhere, unspecified severity, without behavioral disturbance, psychotic disturbance, mood disturbance, and anxiety; E03.9 Hypothyroidism, unspecified; R00.1 Bradycardia, unspecified; R60.0 Localized edema; Z66 Do not resuscitate; I08.3 Combined rheumatic disorders of mitral, aortic and tricuspid valves; I42.5 Other restrictive cardiomyopathy; G20 Parkinson's disease; E66.9 Obesity, unspecified; Z68.26 Body mass index [BMI] 26.0-26.9, adult; Z79.82 Long term (current) use of aspirin; Z79.84 Long term (current) use of oral hypoglycemic drugs; Z79.899 Other long term (current) drug therapy; E78.00 Pure hypercholesterolemia, unspecified
CPT/HCPCS: 36415; 36416; 71045; 80048; 80053; 82553; 83880; 84484; 85025; 93005; 93306; 93798; 96374; 96375; A4216; G8978-GP-CK; G8979-GP-CJ; G8987-GO-CK; G8988-GO-CJ; J0360; J1650; J1815; J1940